=== PATIENT | female | born 1950 | race Caucasian/White ===

== ENCOUNTER 2018-08-02 20:35 | Emergency (ER) | payer MEDICARE, MEDICAID, SELFPAY ==
[2018-07-30 13:38] VITALS: BMI 33.3
[2018-08-02 20:36] VITALS: BP 190/70; PULSE 74; RESP 16; TEMP 36.8; O2SAT 99; BMI 33.3
[2018-08-02 20:53] VITALS: RESP 16; TEMP 36.9; O2SAT 99
[2018-08-02 21:05] LABS: Bedside Glucose > 500 mg/dL (70-110)
[2018-08-02] MEDS: Insulin Lispro 100 UNIT/ML INSULN.PEN 20 UNIT SC (22:00)
[2018-08-02 22:45] VITALS: BP 168/61; PULSE 86; RESP 18; O2SAT 97
[2018-08-02 23:12] LABS: ALB/GLOB Ratio 0.9 RATIO (0.9-2.4); AST(SGOT) 16 U/L (15-37); Alanine Aminotransfer ALT/SGPT 23 U/L (13-56); Albumin, Serum 3.3 g/dL (3.2-5.0); Alkaline Phosphatase 105 U/L (45-117); Anion Gap 10 (5-15); BUN 72 mg/dL (7-18); BUN/Creat Ratio 14.4 RATIO (10-20); Calcium,Total 8.7 mg/dL (8.5-10.1); Chloride 97 mmol/L (98-107); EST Glomerular Filtration Rate 9 mL/min (>60); Est Glom Filt Rate - Afr Amer 11 mL/min (>60); Estimated Creatinine Clearance 9.56 ml/min; Globulin 3.7 g/dL (2.2-4.2); Glucose 483 mg/dL (74-106); Potassium 3.6 mmol/L (3.5-5.1); Sodium Level 133 mmol/L (136-145)
[2018-08-02 23:36] LABS: Bedside Glucose 357 mg/dL (70-110)
--- NOTE | 2018-08-02 23:38 | ED.VISSUMM ---
- ER Visit Summary Date of Service: 08/02/18 Chief Complaint: Abnormal labs History of Present Illness: The patient is a 68 F who presents for abnormal labs. The patient says she was referred to the emergency department by Dr. Brooks because of irregular labs. Patient denies any symptoms or complaints. She has a history of chronic kidney disease and diabetes. She says she is scheduled for a fistula placement in 5 days. As of now, she has not started dialysis. She has no other access for dialysis. Patient denies any complaints whatsoever. Thorough review of systems was negative. Physical Examination: Afebrile and vital signs unremarkable except for a blood pressure of 190/70. Patient is alert and oriented. No acute distress. Head and neck atraumatic. HEENT exam grossly unremarkable. Heart regular rate and rhythm. Lungs clear. Abdomen soft and nontender. Skin appears normal. Test Results: Sodium 133, chloride 97, glucose 43, BUN 72, creatinine 5.0. Acetone pending. Emergency Department Course and Treatment: Patient's outpatient labs were reviewed. She had a hemoglobin of 10.7, glucose over 800, and creatinine of 5.1. IV access obtained. Patient received a bolus of fluids. Bedside glucose was over 500. She was treated with lispro 20 units, and labs were repeated. Plan was to admit the patient. Repeat glucose was 357. Patient's creatinine is now 5.0. BUN 72. Acetone pending. Patient's creatinine is rising. It has been around 3 since March 2018. Patient does not currently have access for dialysis. She is planning to get her fistula next week, but that will not be functional for at least a few months. I advised admission for inpatient care, but the patient does not want to stay. She has an appointment tomorrow and will not stay. I advised her that we can improve her glucose, but I cannot help with her worsening renal failure outside the hospital. She is at risk for complications of renal failure like hyperkalemia. Patient voiced understanding and agreement. She is alert and oriented and free from outside influence. Patient signed out AGAINST MEDICAL ADVICE. All questions were answered. She may return at any time if she has a change of heart. Treatment Plan: As above Disposition: AMA Impression: 1. Hyperglycemia 2. End-stage renal disease This note was generated with [employer] software. It may contain incorrect words, spelling, and punctuation that were not noted in review of the chart prior to signing ED Disposition - Plan for ED Patient: Referrals: Hortencia Zacarias, SHAN-C [Primary Care Provider] -
--- NOTE | 2018-08-02 23:45 | ED.DEP ---
ED Disposition - Plan for ED Patient: Instructions: ED Renal Failure Chronic, ED Hyperglycemia Diabetic Referrals: Hortencia Zacarias NP-C [Primary Care Provider] - Monty Brooks MD [STAFF PHYSICIAN] -
[2018-08-02 23:47] VITALS: BP 148/63; PULSE 87; RESP 16; O2SAT 98
== END 2018-08-02 23:52 | disposition home or self-care (01) ==
PROVIDERS: Emergency Provider Emergency Medicine; Family Provider Nurse Practitioner Family; PCP Nurse Practitioner Family
DX: E11.65 Type 2 diabetes mellitus with hyperglycemia (principal); I12.0 Hypertensive chronic kidney disease with stage 5 chronic kidney disease or end stage renal disease; E11.22 Type 2 diabetes mellitus with diabetic chronic kidney disease; N18.6 End stage renal disease; D63.1 Anemia in chronic kidney disease; Z53.21 Procedure and treatment not carried out due to patient leaving prior to being seen by health care provider; K21.9 Gastro-esophageal reflux disease without esophagitis; Z79.4 Long term (current) use of insulin; Z79.899 Other long term (current) drug therapy; Z72.0 Tobacco use
CPT/HCPCS: 80053; 82009; 82962; 96360; 96361; 99283; J7040; A4216

== ENCOUNTER 2018-08-06 18:36 | Observation (INO) | payer MEDICARE, MEDICAID, SELFPAY ==
[2018-07-30 13:38] VITALS: BMI 33.3
--- NOTE | 2018-08-02 17:04 | EKG12_ITS ---
Test Reason : Blood Pressure : / mmHG Vent. Rate : 068 BPM Atrial Rate : 068 BPM P-R Int : 168 ms QRS Dur : 096 ms QT Int : 446 ms P-R-T Axes : 054 045 -09 degrees QTc Int : 474 ms Normal sinus rhythm Possible Left atrial enlargement Nonspecific ST and T wave abnormality Prolonged QT Abnormal ECG Confirmed by EPHRAIM FRANZ, CANDICE ([id number]), photography editor LAZARO TREVIÑO ([id number]) on 08/06/2018 9:25:02 AM Referred By: Monty Brooks Confirmed By:CANDICE YE MD
[2018-08-02 17:48] LABS: Hematocrit 30.7 % (37-47); Hemoglobin 10.7 g/dl (12.0-15.0); Mean Corp Hgb Conc 34.9 g/gl (32-36); Mean Corpuscular Hgb 28.9 pg (27.0-32.0); Mean Platelet Vol. 11.4 fl (6.2-12.0); Platelet Count 177 K/mm3 (150-450); RBC Distribution Width CV 13.7 % (11.6-14.6); RBC Distribution Width SD 40.2 fl (35.1-43.9); Scan Indicated on CBC? Y/N NO; White Blood Count 5.4 K/mm3 (4.4-11.0)
[2018-08-02 18:03] LABS: Anion Gap 10 (5-15); BUN 77 mg/dL (7-18); BUN/Creat Ratio 15.1 RATIO (10-20); Calcium,Total 8.7 mg/dL (8.5-10.1); Chloride 95 mmol/L (98-107); Creatinine, Serum 5.11 mg/dL (0.55-1.02); EST Glomerular Filtration Rate 9 mL/min (>60); Est Glom Filt Rate - Afr Amer 11 mL/min (>60); Glucose 827 mg/dL (74-106); Potassium 3.9 mmol/L (3.5-5.1); Sodium Level 128 mmol/L (136-145)
[2018-08-06 18:36] VITALS: BP 146/76; PULSE 72; RESP 16; TEMP 36.3; O2SAT 98; BMI 33.3
[2018-08-06 19:41] LABS: Absolute Lymphocyte Count 2.26 X10^3/ul (0.83-4.51); Basophil# 0.03 X10^3/uL; Basophil% 0.4 % (0-1); Eosinophils% 2.7 % (0-5); Hematocrit 32.7 % (37-47); Hemoglobin 11.3 g/dl (12.0-15.0); Lymphocyte # 2.26 X10^3/ul (4.0); Lymphocyte % 30.7 % (19-41); Mean Corp Hgb Conc 34.6 g/gl (32-36); Mean Corpuscular Hgb 28.5 pg (27.0-32.0); Mean Corpuscular Volume 82.6 fL (81-99); Mean Platelet Vol. 10.5 fl (6.2-12.0); Monocyte# 0.87 X10^3/uL; Monocyte% 11.8 % (0-10); Neutrophil # 3.98 X10^3/uL (2.7-7.7); Neutrophil % 54.3 % (47-70); Platelet Count 227 K/mm3 (150-450); RBC Distribution Width CV 13.5 % (11.6-14.6); RBC Distribution Width SD 39.7 fl (35.1-43.9); Red Blood Count 3.96 M/mm3 (4.2-5.4); White Blood Count 7.4 K/mm3 (4.4-11.0)
[2018-08-06 19:45] LABS: POSITIVE COUNT NO; POSITIVE DIFFERENTIAL NO; POSITIVE MORPHOLOGY NO
[2018-08-06 19:56] LABS: BUN 75 mg/dL (7-18); Calcium,Total 9.5 mg/dL (8.5-10.1); Chloride 103 mmol/L (98-107); Creatinine, Serum 5.01 mg/dL (0.55-1.02); EST Glomerular Filtration Rate 9 mL/min (>60); Est Glom Filt Rate - Afr Amer 11 mL/min (>60); Estimated Creatinine Clearance 9.54 ml/min; Glucose 68 mg/dL (74-106); Potassium 3.3 mmol/L (3.5-5.1); Sodium Level 139 mmol/L (136-145)
[2018-08-06 19:57] LABS: Anion Gap 8 (5-15)
--- NOTE | 2018-08-06 20:06 | ED.RN ---
DR MERINO PAGED FOR DR JANSEN
--- NOTE | 2018-08-06 20:08 | ED.VISSUMM ---
- ER Visit Summary Date of Service: 08/06/18 Chief Complaint: [Concern for elevated blood sugar] History of Present Illness: The patient is a 68 F [presents to the emergency department with concern for elevated blood sugar. Patient was seen for pre-surgical testing on the fourth of this month and was noted to have a blood sugar of over 800. Today her surgeon called her and told her she needed to come to the emergency department to make sure her sugars are stabilized before she is to have her surgery for a fistula placement tomorrow by Dr. Monty Brooks. Patient states that she feels well and her blood sugars at home is been running in the 100s to the 200s. Patient normally gives herself sliding scale Humalog 3 times a day and uses Lantus at night. Last time she gave herself any insulin was approximately noon after eating lunch. Patient is not eaten since lunch. Patient has otherwise no complaints. No recent illness.] Physical Examination: [HEENT-PERRLA, EOMI. Cranial nerves II through XII grossly intact. TMs clear. Mucous membranes moist. No adenopathy. Cardiovascular-regular rate and rhythm without murmur or ectopy Lungs-clear to auscultation, chest wall stable without crepitus or subcu emphysema Abdomen-normoactive bowel sounds, soft, nontender, no rebound or rigidity, no peritoneal signs. Extremities-intact ?4, normal range of motion, normal pulses, atraumatic] Test Results: [CBC with differential obtained showed a white count of 7.4, hemoglobin 11, hematocrit 33, platelets 227. Chemistries unremarkable other than slightly depressed potassium 3.3. Blood glucose was 68.] Emergency Department Course and Treatment: [Patient was given 40 mEq of potassium chloride p.o. I will discuss case with physician on-call for Dr. Monty Brooks to make him aware findings but I do not feel any further treatments indicated at this time. Patient was given instructions on her medications tonight and was told to be n.p.o. after midnight.] Treatment Plan: [Follow-up tomorrow for your surgery. It is possible the abnormally elevated blood sugar was lab error.] Disposition: [Discharged to home in stable condition] Impression: [Concern for hyperglycemia] This note was generated with [employer] software. It may contain incorrect words, spelling, and punctuation that were not noted in review of the chart prior to signing ED Disposition - Plan for ED Patient: Referrals: Hortencia Zacarias, SHAN-C [Primary Care Provider] -
--- NOTE | 2018-08-06 20:11 | ED.DCSUM_ITS ---
- ER Visit Summary Date of Service: 08/06/18 Chief Complaint: [Concern for elevated blood sugar] History of Present Illness: The patient is a 68 F [presents to the emergency department with concern for elevated blood sugar. Patient was seen for pre- surgical testing on the fourth of this month and was noted to have a blood sugar of over 800. Today her surgeon called her and told her she needed to come to the emergency department to make sure her sugars are stabilized before she is to have her surgery for a fistula placement tomorrow by Dr. Monty Brooks. Patient states that she feels well and her blood sugars at home is been running in the 100s to the 200s. Patient normally gives herself sliding scale Humalog 3 times a day and uses Lantus at night. Last time she gave herself any insulin was approximately noon after eating lunch. Patient is not eaten since lunch. Patient has otherwise no complaints. No recent illness.] Physical Examination: [HEENT-PERRLA, EOMI. Cranial nerves II through XII grossly intact. TMs clear. Mucous membranes moist. No adenopathy. Cardiovascular-regular rate and rhythm without murmur or ectopy Lungs-clear to auscultation, chest wall stable without crepitus or subcu emphysema Abdomen-normoactive bowel sounds, soft, nontender, no rebound or rigidity, no peritoneal signs. Extremities-intact ?4, normal range of motion, normal pulses, atraumatic] Test Results: [CBC with differential obtained showed a white count of 7.4, hemoglobin 11, hematocrit 33, platelets 227. Chemistries unremarkable other than slightly depressed potassium 3.3. Blood glucose was 68.] Emergency Department Course and Treatment: [Patient was given 40 mEq of potassium chloride p.o. I will discuss case with physician on-call for Dr. Monty Brooks to make him aware findings but I do not feel any further treatments indicated at this time. Patient was given instructions on her medications tonight and was told to be n.p.o. after midnight.] Treatment Plan: [Follow-up tomorrow for your surgery. It is possible the abnormally elevated blood sugar was lab error.] Disposition: [Discharged to home in stable condition] Impression: [Concern for hyperglycemia] This note was generated with [employer] software. It may contain incorrect words, spelling, and punctuation that were not noted in review of the chart prior to signing ED Disposition - Plan for ED Patient: Referrals: Hortencia Zacarias, SHAN-C [Primary Care Provider] -
--- NOTE | 2018-08-06 20:13 | ED.DEP ---
ED Disposition - Plan for ED Patient: Instructions: ED Hyperglycemia Diabetic Referrals: Hortencia Zacarias NP-C [Primary Care Provider] - Additional Instructions: keep your appointement for surgery tomorrow
[2018-08-06 20:20] VITALS: RESP 18
--- NOTE | 2018-08-06 20:23 | ED.VISSUMM ---
- ER Visit Summary Date of Service: 08/06/18 Chief Complaint: [Addendum to initial dictation] History of Present Illness: The patient is a 68 F [] Physical Examination: [] Test Results: [] Emergency Department Course and Treatment: [] Treatment Plan: [I discussed case with who discussed case with Dr. Monty Brooks and recommended admission for the patient as she is been quite labile with her blood sugars and he would prefer to have her admitted and have her blood sugars managed before surgery tomorrow morning. This was established with hospitalist earlier in the day however patient took a long time to present to the emergency department.] Disposition: [Admit] Impression: [Hyperglycemia-uncontrolled by history Presurgery admission Hypokalemia] This note was generated with [employer] dictation software. It may contain incorrect words, spelling, and punctuation that were not noted in review of the chart prior to signing ED Disposition - Plan for ED Patient: Instructions: ED Hyperglycemia Diabetic Referrals: Hortencia Zacarias NP-C [Primary Care Provider] - Additional Instructions: keep your appointement for surgery tomorrow
[2018-08-06 21:23] VITALS: BP 176/65; PULSE 68; RESP 18; TEMP 36.6; O2SAT 98
--- NOTE | 2018-08-06 21:24 | HP.PCM_ITS ---
Problem List (1) Chronic renal failure, stage 4 (severe) Status: Chronic History of Present Illness Date of Admission: 08/06/18 Chief Complaint: kidney failure and poor glycemic control The patient is a 68 year old female patient with fragile diabetes presents to the hospital for admission. Surgery is planned in the am to place an arterial- venous fistula in her left upper extremity. She is known to have poor glycemic control and admission was requested to assure adequate diabetes management prior to this procedure. She has no complaints at this time and is agreeable to this management plan. Past Medical History Past Medical History (Chronic Problems): Chronic Problems (Last Updated 07/30/18 @ 13:36 by Ange Bustillos) Chronic renal failure, stage 4 (severe) (Chronic) Medical History: Medical History (Last Updated 07/30/18 @ 13:36 by Ange Bustillos) Chronic renal failure, stage 4 (severe) (Chronic) N18.4 Anemia D64.9 CHF (congestive heart failure) I50.9 Depression F32.9 Diabetes E11.9 Diabetic neuropathy E11.40 GERD (gastroesophageal reflux disease) K21.9 Obesity E66.9 Chronic kidney disease N18.9 Hypertension I10 Allergies No Known Allergies Allergy (Verified 08/06/18 18:38) Home Medications: Ambulatory Orders Medication Instructions Recorded atorvastatin 20 mg tablet 20 mg PO DAILY 07/30/18 calcitriol 0.25 mcg capsule 0.25 mcg PO DAILY cap 07/30/18 docusate sodium 50 mg capsule 50 mg PO TID cap 07/30/18 ezetimibe 10 mg tablet 10 mg PO DAILY 07/30/18 ferrous sulfate 325 mg (65 mg 325 mg PO BID tab 07/30/18 iron) tablet furosemide 80 mg tablet 80 mg PO DAILY 07/30/18 hydralazine 100 mg tablet 100 mg PO TID tab 07/30/18 insulin glargine (U- 100) 100 25 unit SC QHS ml 07/30/18 unit/mL subcutaneous solution insulin lispro (U- 100) 100 See Protocol SC TIDCM 07/30/18 unit/mL subcutaneous solution metolazone 5 mg tablet 5 mg PO TID tab 07/30/18 metoprolol succinate ER 100 mg 200 mg PO DAILY ea 07/30/18 capsule sprinkle, ext. release 24 hr ranitidine 150 mg tablet 150 mg PO DAILY 07/30/18 Ondansetron HCl 4 mg PO Q4H PRN PRN 08/02/18 Cholecalciferol (VIT D3) [Vitamin 1,000 unit PO DAILY 08/06/18 D] Surgical History: Surgical History (Last Updated 07/30/18 @ 13:36 by Ange Bustillos) History of Z98.891 History of appendectomy Z90.49 History of laparoscopic cholecystectomy Z90.49 history colon repair Smoking Status: Never smoker - *Family History Maternal Family History: Family History (Last Updated 07/30/18 @ 13:38 by Ange Bustillos) Father Diabetes Heart disease Mother Heart disease Sister Diabetes Brother Diabetes History Items: No pertinent history Review of Systems Constitutional: Denies: Chills, Fever, Weight Change HEENT: Denies: Head Aches, Sinus Congestion, Sinus Drainage Cardiovascular: Denies: Chest Pain, Palpitations Respiratory: Denies: Cough, Shortness of breath at rest, Sputum production Gastrointestinal: Denies: Abdominal Pain, Nausea, Vomiting Genitourinary: Denies: Dysuria Musculoskeletal: Denies: Joint Pain, Joint Tenderness Skin: Denies: Rash, Wounds Neurological: Denies: Numbness, Tingling, Focal weakness Psychiatric: Denies: Anxiety, Depression, Homicidal Ideations, Suicidal Ideations Hematologic/ Lymphatic: Denies: Easy Bruising, Easy Bleeding VTE Information - Inpt Only VTE Present on Admission: No VTE Mechan Device Prophylaxis: SCD's VTE Pharm Prophylaxis ordered?: No Reason prophylaxis not ordered:: Medical Contraindication - Physical Exam General: Alert, Oriented x3, Cooperative HEENT: Atraumatic, Normocephalic Neck: Supple Lungs: Clear to auscultation, Normal air movement Cardiovascular: Regular rate, Normal S1, Normal S2, No murmurs Abdomen: Bowel Sounds Present Extremities: No edema Skin: No rashes Musculoskeletal: No Tenderness to Palpation of Joints or Extremities Neurological: Neuro grossly intact Psych/Mental Status: Normal Affect, Appropriate Vital Signs Temp Pulse Resp BP Pulse Ox 97.4 F L 72 18 146/76 H 98 08/06/18 18:36 08/06/18 18:36 08/06/18 20:20 08/06/18 18:36 08/06/18 18:36 Oxygen Delivery Method Room Air Weight: 194 lb 3.636 oz Body Mass Index (BMI) 33.3 Finger Stick Blood Glucose 357 Laboratory Tests Past 24 Hrs 08/06/18 08/06/18 19:28 19:28 WBC 7.4 RBC 3.96 L Hgb 11.3 L Hct 32.7 L MCV 82.6 MCH 28.5 MCHC 34.6 RDW 13.5 RDW Differential 39.7 Plt Count 227 MPV 10.5 Immature Gran % (Auto) 0.100 Neut % (Auto) 54.3 Lymph % (Auto) 30.7 [place] % (Auto) 11.8 H Eos % (Auto) 2.7 Baso % (Auto) 0.4 Absolute Neuts (auto) 4.0 Absolute Lymphs (auto) 2.26 Total Counted Not Reportable Sodium 139 Potassium 3.3 L Chloride 103 Carbon Dioxide 28.0 Anion Gap 8 BUN 75 H Creatinine 5.01 H Estim Creat Clear Calc 9.54 Est GFR (MDRD) Af Amer 11 L Est GFR (MDRD) Non-Af 9 L BUN/Creatinine Ratio 15.0 Glucose 68 L Calcium 9.5 Assessment/Plan Chronic Problems (Last Updated 07/30/18 @ 13:36 by Ange Bustillos) Chronic renal failure, stage 4 (severe) (Chronic) Plan 1. Renal Failure-- admit to medical surgical floor, consult to Dr. Brooks for surgical management and fistula. IV normal saline at 75cc/hour, CBC, BMP in am. NPO at midnight 2. Diabetes-- give 12units Lantus and medium dose SSI Continue routine home medications for chronic medical conditions. SCDs for DVT prophylaxis Code Visit Inpatient E&M: 60133 Init Hosp L3
[2018-08-06 21:26] VITALS: BMI 33.0
[2018-08-06 21:35] VITALS: BMI 33.1
[2018-08-06 22:10] LABS: Bedside Glucose 156 mg/dL (70-110)
[2018-08-06 22:29] VITALS: PULSE 68
[2018-08-06] MEDS: hydrALAZINE 50 MG Tablet 100 MG PO (22:29)
[2018-08-06] MEDS: metOLazone 5 MG Tablet PO (22:29)
[2018-08-06] MEDS: 0.9% NaCl Peripheral Flush Adult/Peds IV (22:30)
[2018-08-06] MEDS: Docusate Sodium 100 MG/10 ML UDC 50 MG PO (22:30)
[2018-08-06] MEDS: 0.9% Normal Saline 1,000 ML 75 ML IV (22:30)
[2018-08-06] MEDS: Insulin Lispro 100 UNIT/ML INSULN.PEN SQ (23:09)
[2018-08-06 23:21] LABS: Hemoglobin A1c 9.5 % (4.2-6.3)
[2018-08-07] VITALS (20 sets, daily range): BP systolic 131–182; BP diastolic 49–97; PULSE 60–77; RESP 16–18; TEMP 36.3–37; O2SAT 66–100; BMI 33.0; BMI 33.1
[2018-08-07 05:37] LABS: Absolute Lymphocyte Count 2.02 X10^3/ul (0.83-4.51); Absolute Neutrophil Count 2.2 X10^3/uL (2.0-7.7); Basophil# 0.03 X10^3/uL; Basophil% 0.6 % (0-1); Eosinophil# 0.22 X10^3/uL; Eosinophils% 4.3 % (0-5); Hematocrit 28.4 % (37-47); Hemoglobin 9.6 g/dl (12.0-15.0); Lymphocyte # 2.02 X10^3/ul (4.0); Lymphocyte % 39.8 % (19-41); Mean Corp Hgb Conc 33.8 g/gl (32-36); Mean Corpuscular Hgb 28.5 pg (27.0-32.0); Mean Corpuscular Volume 84.3 fL (81-99); Mean Platelet Vol. 11.1 fl (6.2-12.0); Monocyte# 0.57 X10^3/uL; Monocyte% 11.2 % (0-10); Neutrophil # 2.22 X10^3/uL (2.7-7.7); Neutrophil % 43.9 % (47-70); Platelet Count 172 K/mm3 (150-450); RBC Distribution Width CV 13.6 % (11.6-14.6); RBC Distribution Width SD 40.5 fl (35.1-43.9); Red Blood Count 3.37 M/mm3 (4.2-5.4); White Blood Count 5.1 K/mm3 (4.4-11.0)
[2018-08-07 05:44] LABS: POSITIVE COUNT NO; POSITIVE DIFFERENTIAL NO; POSITIVE MORPHOLOGY NO
[2018-08-07 05:52] LABS: Anion Gap 9 (5-15); BUN 74 mg/dL (7-18); Chloride 104 mmol/L (98-107); Creatinine, Serum 4.92 mg/dL (0.55-1.02); EST Glomerular Filtration Rate 9 mL/min (>60); Est Glom Filt Rate - Afr Amer 11 mL/min (>60); Estimated Creatinine Clearance 9.71 ml/min; Glucose 386 mg/dL (74-106); Potassium 3.8 mmol/L (3.5-5.1); Sodium Level 138 mmol/L (136-145)
[2018-08-07] MEDS: hydrALAZINE 50 MG Tablet 100 MG PO ×2 (06:04→22:10)
[2018-08-07] MEDS: Insulin Lispro 100 UNIT/ML INSULN.PEN SQ ×2 (06:04→19:20)
[2018-08-07 06:15] LABS: Bedside Glucose 349 mg/dL (70-110)
--- NOTE | 2018-08-07 07:31 | PCM.PN.SRG ---
Subjective: Patient evaluated resting comfortably in bed. She notes overall feeling well. She notes her blood sugars typically run in the 200's at home. Patient's blood sugar was 386 via lab work and 349 at bedside at 0600. 5 units of Humalog was ordered to be given. Patient has been NPO since midnight last night. - Physical Exam General: Alert, Oriented x3, Cooperative Lungs: Clear to auscultation, Normal air movement Cardiovascular: Regular rate, No murmurs Vital Signs Temp Pulse Resp BP Pulse Ox 98.1 F 66 16 155/68 H 99 08/07/18 06:02 08/07/18 06:04 08/07/18 06:02 08/07/18 06:02 08/07/18 06:02 Oxygen Delivery Method Room Air Weight: 192 lb 14.472 oz Body Mass Index (BMI) 33.0 Finger Stick Blood Glucose 357 Intake and Output for Last 24 Hours 08/05/18 08/06/18 08/07/18 23:59 23:59 23:59 Intake Total 973 / 973 Output Total 300 / 300 600 / 600 Balance -300 / -300 373 / 373 Laboratory Tests Past 24 Hrs 08/06/18 08/06/18 08/06/18 19:28 19:28 19:28 WBC 7.4 RBC 3.96 L Hgb 11.3 L Hct 32.7 L MCV 82.6 MCH 28.5 MCHC 34.6 RDW 13.5 RDW Differential 39.7 Plt Count 227 MPV 10.5 Immature Gran % (Auto) 0.100 Neut % (Auto) 54.3 Lymph % (Auto) 30.7 [place] % (Auto) 11.8 H Eos % (Auto) 2.7 Baso % (Auto) 0.4 Absolute Neuts (auto) 4.0 Absolute Lymphs (auto) 2.26 Total Counted Not Reportable Sodium 139 Potassium 3.3 L Chloride 103 Carbon Dioxide 28.0 Anion Gap 8 BUN 75 H Creatinine 5.01 H Estim Creat Clear Calc 9.54 Est GFR (MDRD) Af Amer 11 L Est GFR (MDRD) Non-Af 9 L BUN/Creatinine Ratio 15.0 Glucose 68 L Hemoglobin A1c 9.5 H Calcium 9.5 08/07/18 08/07/18 05:08 05:08 WBC 5.1 RBC 3.37 L Hgb 9.6 L Hct 28.4 L MCV 84.3 MCH 28.5 MCHC 33.8 RDW 13.6 RDW Differential 40.5 Plt Count 172 MPV 11.1 Immature Gran % (Auto) 0.200 Neut % (Auto) 43.9 L Lymph % (Auto) 39.8 [place] % (Auto) 11.2 H Eos % (Auto) 4.3 Baso % (Auto) 0.6 Absolute Neuts (auto) 2.2 Absolute Lymphs (auto) 2.02 Total Counted Not Reportable Sodium 138 Potassium 3.8 Chloride 104 Carbon Dioxide 25.0 Anion Gap 9 BUN 74 H Creatinine 4.92 H Estim Creat Clear Calc 9.71 Est GFR (MDRD) Af Amer 11 L Est GFR (MDRD) Non-Af 9 L BUN/Creatinine Ratio 15.0 Glucose 386 H Hemoglobin A1c Calcium 9.0 POC Glucose 08/07/18 08/06/18 05:59 22:01 POC Glucose 349 H 156 H Medical Necessity - Tobacco Use Smoking Status: Former smoker Tobacco Use: Cigarettes Assessment/Plan I am following this patient in conjunction with Dr. Brooks. Impression: Chronic renal failure. Not currently on dialysis. Uncontrolled blood glucose. Optimize blood glucose for surgery scheduled today at 1100. Last blood glucose read was 349 at bedside Plan is for patient to continue on to surgery today Code Visit Inpatient E&M: 03918 Subs Hosp L1 - No charge
[2018-08-07 08:31] LABS: Bedside Glucose 155 mg/dL (70-110)
--- NOTE | 2018-08-07 09:20 | PCM.PN.HOSP ---
Subjective: Patient was admitted yesterday through the ED for AV fistula placement in glycemic control. She is a known diabetic noncompliant with her medication and had previously been seen in the ED with severely elevated blood glucose. She refused admission then. She is poor glycemic control prior to AV fistula insertion. On admission yesterday, blood glucose was around 68. Patient seen and examined this morning. She has no complaints feels well. She claims adherence to her diabetes medications and follows her [facility] in [place] for management of her diabetes. She denies any palpitations or dizziness, chest pain, abdominal pain, diarrhea vomiting. Review of systems otherwise negative. Labs and vitals reviewed. Vitals/I&O's: Vital Signs Temp Pulse Resp BP Pulse Ox 98.2 F 63 18 151/63 H 98 08/07/18 09:17 08/07/18 09:17 08/07/18 09:17 08/07/18 09:17 08/07/18 09:17 Oxygen Delivery Method Room Air Weight: 192 lb 14.472 oz Body Mass Index (BMI) 33.0 Finger Stick Blood Glucose 357 Intake and Output for Last 24 Hours 08/05/18 08/06/18 08/07/18 23:59 23:59 23:59 Intake Total 973 / 973 Output Total 300 / 300 600 / 600 Balance -300 / -300 373 / 373 General: Alert, Oriented x3, Cooperative, No apparent distress HEENT: Atraumatic, PERRLA, EOMI, Normocephalic Oral: Moist Mucosa Neck: Supple, No JVD, Negative Carotid Bruits Lungs: Clear to auscultation, Normal air movement, No rhonchi, No wheeze, No rales Cardiovascular: Regular rate, Regular Rhythm, Normal S1, Normal S2, No murmurs Abdomen: Bowel Sounds Present, Soft, Non Tender, Non-Distended, No Hepato-splenomegaly Extremities: No clubbing, No cyanosis, No edema, Capillary Refill Less than 3 Seconds, No Calf Tenderness Skin: No rashes, No breakdown Musculoskeletal: No Tenderness to Palpation of Joints or Extremities Lymphatic: No Cervical, Supraclavicular, or Inguinal Adenopathy Neurological: Cranial nerves II-XII grossly intact, Neuro grossly intact, Motor Exam 5/5 strength throughout Psych/Mental Status: Normal Affect, Appropriate, Alert and oriented to time, place, person, mood and affect Laboratory Results 08/06/18 19:28: WBC 7.4, RBC 3.96 L, Hgb 11.3 L, Hct 32.7 L, MCV 82.6, MCH 28.5, MCHC 34.6, RDW 13.5, RDW Differential 39.7, Plt Count 227, MPV 10.5, Immature Gran % (Auto) 0.100, Neut % (Auto) 54.3, Lymph % (Auto) 30.7, [place] % (Auto) 11.8 H, Eos % (Auto) 2.7, Baso % (Auto) 0.4, Absolute Neuts (auto) 4.0, Absolute Lymphs (auto) 2.26, Total Counted Not Reportable 08/06/18 19:28: Sodium 139, Potassium 3.3 L, Chloride 103, Carbon Dioxide 28.0, Anion Gap 8, BUN 75 H, Creatinine 5.01 H, Estim Creat Clear Calc 9.54, Est GFR (MDRD) Af Amer 11 L, Est GFR (MDRD) Non-Af 9 L, BUN/Creatinine Ratio 15.0, Glucose 68 L, Calcium 9.5 08/06/18 19:28: Hemoglobin A1c 9.5 H 08/06/18 22:01: POC Glucose 156 H 08/07/18 05:08: WBC 5.1, RBC 3.37 L, Hgb 9.6 L, Hct 28.4 L, MCV 84.3, MCH 28.5, MCHC 33.8, RDW 13.6, RDW Differential 40.5, Plt Count 172, MPV 11.1, Immature Gran % (Auto) 0.200, Neut % (Auto) 43.9 L, Lymph % (Auto) 39.8, [place] % (Auto) 11.2 H, Eos % (Auto) 4.3, Baso % (Auto) 0.6, Absolute Neuts (auto) 2.2, Absolute Lymphs (auto) 2.02, Total Counted Not Reportable 08/07/18 05:08: Sodium 138, Potassium 3.8, Chloride 104, Carbon Dioxide 25.0, Anion Gap 9, BUN 74 H, Creatinine 4.92 H, Estim Creat Clear Calc 9.71, Est GFR (MDRD) Af Amer 11 L, Est GFR (MDRD) Non-Af 9 L, BUN/Creatinine Ratio 15.0, Glucose 386 H, Calcium 9.0 08/07/18 05:59: POC Glucose 349 H 08/07/18 08:28: POC Glucose 155 H Current Medications Atorvastatin Calcium (Lipitor) 20 mg PO DAILY@2200 [facility] Last Admin: 08/06/18 22:30 Dose: Not Given Calcitriol (Rocaltrol) 0.25 mcg PO DAILY [facility] Cholecalciferol (Vitamin D) 1,000 unit PO DAILY [facility] Dextrose (D50w Syringe) 0 gm IV X1 PRN; Protocol PRN Reason: Hypoglycemia Docusate Sodium (Colace Syrup) 50 mg PO TID [facility] Last Admin: 08/07/18 06:05 Dose: Not Given Ezetimibe (Zetia) 10 mg PO DAILY [facility] Famotidine (Pepcid) 20 mg PO DAILY [facility] Ferrous Sulfate (Ferrous Sulfate) 325 mg PO BID@1200,1700 [facility] Furosemide (Lasix) 80 mg PO DAILY [facility] Glucagon () 1 mg IM .X1 PRN PRN Reason: Hypoglycemia Hydralazine HCl (Apresoline) 100 mg PO TID [facility] Last Admin: 08/07/18 06:04 Dose: 100 mg Sodium Chloride () 1,000 mls @ 75 mls/hr IV .[id number] [facility] Last Admin: 08/06/18 22:30 Dose: 75 mls/hr Insulin Glargine (Lantus (Bkc)) 12 units SC QHS [facility] Last Admin: 08/06/18 23:09 Dose: 12 u Insulin Human Lispro (Humalog Kwikpen (Bkc)) 0 unit SQ Q6 [facility]; Protocol Last Admin: 08/07/18 06:04 Dose: 5 u Metolazone (Zaroxolyn) 5 mg PO TID [facility] Last Admin: 08/07/18 06:05 Dose: Not Given Metoprolol Succinate (Toprol Xl (Beta Eyal)) 200 mg PO DAILY [facility] Ondansetron HCl (Zofran Odt) 4 mg PO Q4H PRN PRN PRN Reason: NAUSEA Sodium Chloride () 5 - 15 ml IV UD PRN PRN Reason: SALINE FLUSH Last Admin: 08/06/18 22:30 Dose: 10 ml Medical Necessity - Tobacco Use Smoking Status: Former smoker Tobacco Use: Cigarettes Assessment/Plan 1. CKD stage 5 Cr today is 4.92, eGFR is 9 for AV fistula placement today Dr Brooks on board currently on NS at 75cc/hr on calcitriol 2. Diabetes mellitus poorly controlled. A1C is 9.5 was recently seen in ED with hyperglycemia; blood glucose on admission was 68 this time claims compliance with her medications home meds: insulin lantus 25IU qhs, ISS. currently NPO; on ISS. Accuchecks 16hr 3. Hyperlipidemia: on statin and ezetimibe 4. Hypertension: on hydralazine 100mg tid, metoprolol 200mg daily 5. Chronic heart failure EF unknown: on lasix 80mg daily and metolazone 5mg tid. 6. GERD: on ranitidine 7. Anemia: likely due to CKD. Hb is 9.6. On iron supplements DVT prophylaxis: SCD Code Visit OBSV E&M: 43962 Subsequent observation care L3
--- NOTE | 2018-08-07 09:27 | NURSING ---
0830 - LATE ENTRY - LAZARO WARRINGTON NOTIFIED OF BLOOD SUGAR 155.
--- NOTE | 2018-08-07 09:28 | NURSING ---
PT TO RO VIA BED
--- NOTE | 2018-08-07 09:33 | NURSING ---
REPORT CALLED TO RICHARD GUEVARA IN [place]
--- NOTE | 2018-08-07 09:36 | PN_ITS ---
Subjective: Patient was admitted yesterday through the ED for AV fistula placement in glycemic control. She is a known diabetic noncompliant with her medication and had previously been seen in the ED with severely elevated blood glucose. She refused admission then. She is poor glycemic control prior to AV fistula insertion. On admission yesterday, blood glucose was around 68. Patient seen and examined this morning. She has no complaints feels well. She claims adherence to her diabetes medications and follows her CLAIM MANAGER in [place] for management of her diabetes. She denies any palpitations or dizziness, chest pain, abdominal pain, diarrhea vomiting. Review of systems otherwise negative. Labs and vitals reviewed. Vitals/I&O's: Vital Signs Temp Pulse Resp BP Pulse Ox 98.2 F 63 18 151/63 H 98 08/07/18 09:17 08/07/18 09:17 08/07/18 09:17 08/07/18 09:17 08/07/18 09:17 Oxygen Delivery Method Room Air Weight: 192 lb 14.472 oz Body Mass Index (BMI) 33.0 Finger Stick Blood Glucose 357 Intake and Output for Last 24 Hours 08/05/18 08/06/18 08/07/18 23:59 23:59 23:59 Intake Total 973 / 973 Output Total 300 / 300 600 / 600 Balance -300 / -300 373 / 373 General: Alert, Oriented x3, Cooperative, No apparent distress HEENT: Atraumatic, PERRLA, EOMI, Normocephalic Oral: Moist Mucosa Neck: Supple, No JVD, Negative Carotid Bruits Lungs: Clear to auscultation, Normal air movement, No rhonchi, No wheeze, No rales Cardiovascular: Regular rate, Regular Rhythm, Normal S1, Normal S2, No murmurs Abdomen: Bowel Sounds Present, Soft, Non Tender, Non-Distended, No Hepato- splenomegaly Extremities: No clubbing, No cyanosis, No edema, Capillary Refill Less than 3 Seconds, No Calf Tenderness Skin: No rashes, No breakdown Musculoskeletal: No Tenderness to Palpation of Joints or Extremities Lymphatic: No Cervical, Supraclavicular, or Inguinal Adenopathy Neurological: Cranial nerves II-XII grossly intact, Neuro grossly intact, Motor Exam 5/5 strength throughout Psych/Mental Status: Normal Affect, Appropriate, Alert and oriented to time, place, person, mood and affect Laboratory Results 08/06/18 19:28: WBC 7.4, RBC 3.96 L, Hgb 11.3 L, Hct 32.7 L, MCV 82.6, MCH 28.5, MCHC 34.6, RDW 13.5, RDW Differential 39.7, Plt Count 227, MPV 10.5, Immature Gran % (Auto) 0.100, Neut % (Auto) 54.3, Lymph % (Auto) 30.7, Walker % (Auto) 11.8 H, Eos % (Auto) 2.7, Baso % (Auto) 0.4, Absolute Neuts (auto) 4.0, Absolute Lymphs (auto) 2.26, Total Counted Not Reportable 08/06/18 19:28: Sodium 139, Potassium 3.3 L, Chloride 103, Carbon Dioxide 28.0, Anion Gap 8, BUN 75 H, Creatinine 5.01 H, Estim Creat Clear Calc 9.54, Est GFR (MDRD) Af Amer 11 L, Est GFR (MDRD) Non-Af 9 L, BUN/Creatinine Ratio 15.0, Glucose 68 L, Calcium 9.5 08/06/18 19:28: Hemoglobin A1c 9.5 H 08/06/18 22:01: POC Glucose 156 H 08/07/18 05:08: WBC 5.1, RBC 3.37 L, Hgb 9.6 L, Hct 28.4 L, MCV 84.3, MCH 28.5, MCHC 33.8, RDW 13.6, RDW Differential 40.5, Plt Count 172, MPV 11.1, Immature G ran % (Auto) 0.200, Neut % (Auto) 43.9 L, Lymph % (Auto) 39.8, Walker % (Auto) 11.2 H, Eos % (Auto) 4.3, Baso % (Auto) 0.6, Absolute Neuts (auto) 2.2, Absolute Lymphs (auto) 2.02, Total Counted Not Reportable 08/07/18 05:08: Sodium 138, Potassium 3.8, Chloride 104, Carbon Dioxide 25.0, Anion Gap 9, BUN 74 H, Creatinine 4.92 H, Estim Creat Clear Calc 9.71, Est GFR (MDRD) Af Amer 11 L, Est GFR (MDRD) Non-Af 9 L, BUN/Creatinine Ratio 15.0, Glucose 386 H, Calcium 9.0 08/07/18 05:59: POC Glucose 349 H 08/07/18 08:28: POC Glucose 155 H Current Medications Atorvastatin Calcium (Lipitor) 20 mg PO DAILY@2200 [facility] Last Admin: 08/06/18 22:30 Dose: Not Given Calcitriol (Rocaltrol) 0.25 mcg PO DAILY [facility] Cholecalciferol (Vitamin D) 1,000 unit PO DAILY [facility] Dextrose (D50w Syringe) 0 gm IV X1 PRN; Protocol PRN Reason: Hypoglycemia Docusate Sodium (Colace Syrup) 50 mg PO TID [facility] Last Admin: 08/07/18 06:05 Dose: Not Given Ezetimibe (Zetia) 10 mg PO DAILY [facility] Famotidine (Pepcid) 20 mg PO DAILY [facility] Ferrous Sulfate (Ferrous Sulfate) 325 mg PO BID@1200,1700 [facility] Furosemide (Lasix) 80 mg PO DAILY [facility] Glucagon () 1 mg IM .X1 PRN PRN Reason: Hypoglycemia Hydralazine HCl (Apresoline) 100 mg PO TID [facility] Last Admin: 08/07/18 06:04 Dose: 100 mg Sodium Chloride () 1,000 mls @ 75 mls/hr IV .[id number] [facility] Last Admin: 08/06/18 22:30 Dose: 75 mls/hr Insulin Glargine (Lantus (Bkc)) 12 units SC QHS [facility] Last Admin: 08/06/18 23:09 Dose: 12 u Insulin Human Lispro (Humalog Kwikpen (Bkc)) 0 unit SQ Q6 [facility]; Protocol Last Admin: 08/07/18 06:04 Dose: 5 u Metolazone (Zaroxolyn) 5 mg PO TID [facility] Last Admin: 08/07/18 06:05 Dose: Not Given Metoprolol Succinate (Toprol Xl (Beta Eyal)) 200 mg PO DAILY [facility] Ondansetron HCl (Zofran Odt) 4 mg PO Q4H PRN PRN PRN Reason: NAUSEA Sodium Chloride () 5 - 15 ml IV UD PRN PRN Reason: SALINE FLUSH Last Admin: 08/06/18 22:30 Dose: 10 ml Medical Necessity - Tobacco Use Smoking Status: Former smoker Tobacco Use: Cigarettes Assessment/Plan 1. CKD stage 5 * Cr today is 4.92, eGFR is 9 * for AV fistula placement today * Dr Brooks on board * currently on NS at 75cc/hr * on calcitriol 2. Diabetes mellitus * poorly controlled. A1C is 9.5 * was recently seen in ED with hyperglycemia; blood glucose on admission was 68 this time * claims compliance with her medications * home meds: insulin lantus 25IU qhs, ISS. * currently NPO; on ISS. Accuchecks 16hr * 3. Hyperlipidemia: on statin and ezetimibe 4. Hypertension: on hydralazine 100mg tid, metoprolol 200mg daily 5. Chronic heart failure EF unknown: on lasix 80mg daily and metolazone 5mg tid. 6. GERD: on ranitidine 7. Anemia: likely due to CKD. Hb is 9.6. On iron supplements DVT prophylaxis: SCD Code Visit OBSV E&M: 27034 Subsequent observation care L3
--- NOTE | 2018-08-07 10:50 | PCM.DC.FIST ---
<Monty Brooks - Last Filed: 08/07/18 10:50> Discharge Diet: Renal Diet Discharge Activity: May Not Drive - for 2-3 days or while taking narcotic pain medications., May Shower, May Take a Tub Bath - in 5 days. May shower in (days): 3 Lifting Restrictions: 5 pounds Keep extremity elevated above heart level: - - Keep arm elevated above the heart level for 3 days. Additional Activity Instructions:: Exercise hand vigorously with a stress ball. Call your doctor if your incision/area has: Continuous Slow Oozing, Sudden Increased Bleeding - apply pressure and call your doctor., Increased Pain/ Swelling, Increased Redness, Foul Smelling Discharge Call your doctor if you observe: Fever of 101 or Higher Suture Line Care: Avoid Pulling/Pushing, Avoid Pinching/Bending Cleanse incision/area with: Keep Dressing Clean & Dry Additional Dressing/Incision Instructions:: Change or remove dressing in two days. May protect with a gauze bandaid. Instructions: ED Hyperglycemia Diabetic Allergies/Adverse Reactions: Allergies No Known Allergies Allergy (Verified 08/06/18 18:38) Medications to take at Discharge atorvastatin 20 mg tablet 20 mg PO DAILY 07/30/18 calcitriol 0.25 mcg capsule 0.25 mcg PO DAILY cap 07/30/18 docusate sodium 50 mg capsule 50 mg PO TID cap 07/30/18 ezetimibe 10 mg tablet 10 mg PO DAILY 07/30/18 ferrous sulfate 325 mg (65 mg iron) tablet 325 mg PO BID tab 07/30/18 furosemide 80 mg tablet 80 mg PO DAILY 07/30/18 hydralazine 100 mg tablet 100 mg PO TID tab 07/30/18 insulin glargine (U- 100) 100 unit/mL subcutaneous solution 25 unit SC QHS ml 07/30/18 insulin lispro (U- 100) 100 unit/mL subcutaneous solution See Protocol SC TIDCM 07/30/18 metolazone 5 mg tablet 5 mg PO TID tab 07/30/18 metoprolol succinate ER 100 mg capsule sprinkle, ext. release 24 hr 200 mg PO DAILY ea 07/30/18 ranitidine 150 mg tablet 150 mg PO DAILY 07/30/18 Ondansetron HCl 4 mg PO Q4H PRN PRN 08/02/18 Cholecalciferol (VIT D3) [Vitamin D3] 1,000 unit PO DAILY 08/06/18 Hydrocodone Bitart/Apap 5-325 [Cantril 5MG-325MG] 1 tablet PO Q6H PRN PRN 2 Days #6 tablet 08/07/18 The following prescriptions were given: Hydrocodone Bitart/Apap 5-325 [Cantril 5MG-325MG] 1 tablet PO Q6H PRN PRN 2 Days #6 tablet PRN Reason: Pain Primary Care Physician: Hortencia Zacarias NP-C [Primary Care Provider] - Test Results: Test results from this visit will be discussed in further detail at your follow-up appointment, if applicable. Please Follow Up With: Monty Brooks MD - [phone] When: Call to make an appointment for suture removal and follow up in 10 days <Praisa Escalona - Last Filed: 08/08/18 08:35> Test Results: Test results from this visit will be discussed in further detail at your follow-up appointment, if applicable.
[2018-08-07] MEDS: Bupivacaine Mpf 0.5% 30 ML VIAL (11:20)
[2018-08-07] MEDS: Heparin Injection (Vial) 5,000 UNIT/ML VIAL 5000 UNIT ×2 (11:40→18:00)
--- NOTE | 2018-08-07 12:41 | OP.PCM_ITS ---
Problem List (1) Chronic renal failure, stage 4 (severe) Status: Chronic Report of Operation Date of Procedure: 08/07/18 Pre-Operative Diagnosis: Stage IV chronic renal insufficiency Post-Operative Diagnosis: Same Surgery/Procedure Performed:: Transposition left upper arm cephalic vein to brachial artery arteriovenous hemodialysis fistula creation Description of Surgical Findings:: 68-year-old female taken the operating. She was placed on the table. She underwent monitored anesthesia care local anesthetic. The left upper extremity was sterilely prepped and draped. Throughout the procedure 31 cc of 1% lidocaine mixed 50-50 with 0.5% Marcaine and 15 cc of 0.5% lidocaine was used as local anesthetic. Ultrasound was used to map the course of the left upper arm cephalic vein. It was deeply placed. Local was instilled. A longitudinal incision was created in the left upper arm. Tedious sharp and blunt dissection was used to identify the cephalic vein side branches were secured with 3-0 Vicryl ligatures as well as hemoclips. The vein was dissected free all the way up to the shoulder. Then I measured length. Assessed the spot of the brachial artery in the distal volar left upper arm local was instilled longitudinal incision was created sharp blunt dissection was used to identify the brachial artery and a vessel loop was placed. Then a tunnel was made from the brachial artery site up to the shoulder. The cephalic vein was ligated at the antecubital space with 2 hemo-lock clips. It was then tunneled from medial to the transposition and incision. It irrigated and was in a good positional lie. The patient received 10,000 units of heparin. Peripheral vascular clamps were placed on the brachial artery. 11 blade was used to make an arteriotomy which was extended with Victor scissors. A end-to-side anastomosis was created with the spatulated vein using a 7-0 Prolene. Prior to completion there is good antegrade retrograde flow. The anastomosis was completed there was good positional lie of the vein. No undue tension. There was a good pulse and thrill. The hand was inspected. It was very pink and viable. There was good triphasic left radial artery flow. Hemostasis was nicely intact. The patient received 30 mg of protamine as reversal. Each wound was closed with a deep layer of interrupted 3-0 Vicryl and then a running septic or 4-0 Monocryl or running septic or 4-0 Vicryl. Steri- Strips Telfa soft roll Alejandro wrap applied. Sponge and instrument and needle counts were reported to the surgeon to be correct. Blood loss was minimal. She tolerated the procedure well was taken to the recovery area in satisfactory condition without apparent complication. Specimens none. Drains none. Blood loss minimal. Monty Brooks M.D., F.A.C.S. Type of Anesthesia:: Local MAC Anesthesiologist: Ady Mackey
--- NOTE | 2018-08-07 14:37 | DCINST_ITS ---
You will use the following diet at home:: Calorie/Carbohydrate Controlled (specify 1200, 1400, etc) - 1800 calories, Renal (restricted protein/sodium) Your food should be the consistency of: Regular Your liquids should be the consistency of: Regular/Thin Discharge Activity: May Not Drive - for 2-3 days or while taking narcotic pain medications., May Shower, May Take a Tub Bath - in 5 days. May shower in (days): 3 Keep extremity elevated above heart level: - - Keep arm elevated above the heart level for 3 days. Additional Activity Instructions:: Exercise hand vigorously with a stress ball. Call your doctor if your incision/area has: Continuous Slow Oozing, Sudden Increased Bleeding - apply pressure and call your doctor., Increased Pain/ Swelling, Increased Redness, Foul Smelling Discharge Call your doctor if you observe: Fever of 101 or Higher Suture Line Care: Avoid Pulling/Pushing, Avoid Pinching/Bending Cleanse incision/area with: Keep Dressing Clean & Dry Additional Dressing/Incision Instructions:: Change or remove dressing in two days. May protect with a gauze bandaid. Instructions: ED Hyperglycemia Diabetic Additional Instructions: follow up with your jacquard loom heddles tier within one week Allergies/Adverse Reactions: Allergies No Known Allergies Allergy (Verified 08/06/18 18:38) Medications to take at Discharge atorvastatin 20 mg tablet 20 mg PO DAILY 07/30/18 calcitriol 0.25 mcg capsule 0.25 mcg PO DAILY cap 07/30/18 docusate sodium 50 mg capsule 50 mg PO TID cap 07/30/18 ezetimibe 10 mg tablet 10 mg PO DAILY 07/30/18 ferrous sulfate 325 mg (65 mg iron) tablet 325 mg PO BID tab 07/30/18 furosemide 80 mg tablet 80 mg PO DAILY 07/30/18 hydralazine 100 mg tablet 100 mg PO TID tab 07/30/18 insulin glargine (U- 100) 100 unit/mL subcutaneous solution 25 unit SC QHS ml 07/30/18 insulin lispro (U- 100) 100 unit/mL subcutaneous solution See Protocol SC TIDCM 07/30/18 metolazone 5 mg tablet 5 mg PO TID tab 07/30/18 metoprolol succinate ER 100 mg capsule sprinkle, ext. release 24 hr 200 mg PO DAILY ea 07/30/18 ranitidine 150 mg tablet 150 mg PO DAILY 07/30/18 Ondansetron HCl 4 mg PO Q4H PRN PRN 08/02/18 Cholecalciferol (VIT D3) [Vitamin D3] 1,000 unit PO DAILY 08/06/18 Hydrocodone Bitart/Apap 5-325 [[place] 5MG-325MG] 1 tablet PO Q6H PRN PRN 2 Days #6 tablet 08/07/18 The following prescriptions were given: Hydrocodone Bitart/Apap 5-325 [[place] 5MG-325MG] 1 tablet PO Q6H PRN PRN 2 Days #6 tablet PRN Reason: Pain Primary Care Physician: Hortencia Zacarias NP-C [Primary Care Provider] - Please follow up with your Primary Care Physician in: one week Test Results: Test results from this visit will be discussed in further detail at your follow- up appointment, if applicable. Please Follow Up With: Monty Brooks MD - [phone] When: Call to make an appointment for suture removal and follow up in 10 days Proposed Discharge Date: 08/07/18
--- NOTE | 2018-08-07 14:37 | PCM.DC.SUM ---
Discharge Date and Diagnosis Date of Admission: 08/06/18 - Secondary Discharge Diagnosis Chronic Problems (Last Updated 07/30/18 @ 13:36 by Ange Bustillos) Chronic renal failure, stage 4 (severe) (Chronic) Hospital Course and Treatment Summary of Care Provided: The patient is a 68 year old F [] - Physical Exam Vital Signs Temp Pulse Resp BP Pulse Ox 98.3 F 70 18 157/85 H 99 08/07/18 14:19 08/07/18 14:19 08/07/18 14:19 08/07/18 14:19 08/07/18 14:19 Oxygen Delivery Method Room Air Weight: 192 lb 14.472 oz Body Mass Index (BMI) 33.0 Finger Stick Blood Glucose 357 Intake and Output for Last 24 Hours 08/05/18 08/06/18 08/07/18 23:59 23:59 23:59 Intake Total 1373 / 1373 Output Total 300 / 300 1200 / 1200 Balance -300 / -300 173 / 173 Laboratory Tests Past 24 Hrs 08/06/18 08/06/18 08/06/18 19:28 19:28 19:28 WBC 7.4 RBC 3.96 L Hgb 11.3 L Hct 32.7 L MCV 82.6 MCH 28.5 MCHC 34.6 RDW 13.5 RDW Differential 39.7 Plt Count 227 MPV 10.5 Immature Gran % (Auto) 0.100 Neut % (Auto) 54.3 Lymph % (Auto) 30.7 Wharton % (Auto) 11.8 H Eos % (Auto) 2.7 Baso % (Auto) 0.4 Absolute Neuts (auto) 4.0 Absolute Lymphs (auto) 2.26 Total Counted Not Reportable Sodium 139 Potassium 3.3 L Chloride 103 Carbon Dioxide 28.0 Anion Gap 8 BUN 75 H Creatinine 5.01 H Estim Creat Clear Calc 9.54 Est GFR (MDRD) Af Amer 11 L Est GFR (MDRD) Non-Af 9 L BUN/Creatinine Ratio 15.0 Glucose 68 L Hemoglobin A1c 9.5 H Calcium 9.5 08/07/18 08/07/18 05:08 05:08 WBC 5.1 RBC 3.37 L Hgb 9.6 L Hct 28.4 L MCV 84.3 MCH 28.5 MCHC 33.8 RDW 13.6 RDW Differential 40.5 Plt Count 172 MPV 11.1 Immature Gran % (Auto) 0.200 Neut % (Auto) 43.9 L Lymph % (Auto) 39.8 Wharton % (Auto) 11.2 H Eos % (Auto) 4.3 Baso % (Auto) 0.6 Absolute Neuts (auto) 2.2 Absolute Lymphs (auto) 2.02 Total Counted Not Reportable Sodium 138 Potassium 3.8 Chloride 104 Carbon Dioxide 25.0 Anion Gap 9 BUN 74 H Creatinine 4.92 H Estim Creat Clear Calc 9.71 Est GFR (MDRD) Af Amer 11 L Est GFR (MDRD) Non-Af 9 L BUN/Creatinine Ratio 15.0 Glucose 386 H Hemoglobin A1c Calcium 9.0 POC Glucose 08/07/18 08/07/18 08/06/18 08:28 05:59 22:01 POC Glucose 155 H 349 H 156 H Discharge Diet: Renal Diet Discharge Activity: May Not Drive - for 2-3 days or while taking narcotic pain medications., May Shower, May Take a Tub Bath - in 5 days. May shower in (days): 3 Keep extremity elevated above heart level: - - Keep arm elevated above the heart level for 3 days. Additional Activity Instructions:: Exercise hand vigorously with a stress ball. Call your doctor if your incision/area has: Continuous Slow Oozing, Sudden Increased Bleeding - apply pressure and call your doctor., Increased Pain/ Swelling, Increased Redness, Foul Smelling Discharge Call your doctor if you observe: Fever of 101 or Higher Suture Line Care: Avoid Pulling/Pushing, Avoid Pinching/Bending Cleanse incision/area with: Keep Dressing Clean & Dry Additional Dressing/Incision Instructions:: Change or remove dressing in two days. May protect with a gauze bandaid. Home Medications: Medications to take at Discharge atorvastatin 20 mg tablet 20 mg PO DAILY 07/30/18 calcitriol 0.25 mcg capsule 0.25 mcg PO DAILY cap 07/30/18 docusate sodium 50 mg capsule 50 mg PO TID cap 07/30/18 ezetimibe 10 mg tablet 10 mg PO DAILY 07/30/18 ferrous sulfate 325 mg (65 mg iron) tablet 325 mg PO BID tab 07/30/18 furosemide 80 mg tablet 80 mg PO DAILY 07/30/18 hydralazine 100 mg tablet 100 mg PO TID tab 07/30/18 insulin glargine (U- 100) 100 unit/mL subcutaneous solution 25 unit SC QHS ml 07/30/18 insulin lispro (U- 100) 100 unit/mL subcutaneous solution See Protocol SC TIDCM 07/30/18 metolazone 5 mg tablet 5 mg PO TID tab 07/30/18 metoprolol succinate ER 100 mg capsule sprinkle, ext. release 24 hr 200 mg PO DAILY ea 07/30/18 ranitidine 150 mg tablet 150 mg PO DAILY 07/30/18 Ondansetron HCl 4 mg PO Q4H PRN PRN 08/02/18 Cholecalciferol (VIT D3) [Vitamin D3] 1,000 unit PO DAILY 08/06/18 Hydrocodone Bitart/Apap 5-325 [[place] 5MG-325MG] 1 tablet PO Q6H PRN PRN 2 Days #6 tablet 08/07/18 Following Prescrptions Were Given to Patient: Hydrocodone Bitart/Apap 5-325 [[place] 5MG-325MG] 1 tablet PO Q6H PRN PRN 2 Days #6 tablet PRN Reason: Pain Primary Care Physician: Hortencia Zacarias NP-C [Primary Care Provider] - Please follow up with your Primary Care Physician in: one week Please Follow Up With: Monty Brooks MD - [phone] When: Call to make an appointment for suture removal and follow up in 10 days Patient Instructions: ED Hyperglycemia Diabetic Medical Necessity - Tobacco Use Smoking Status: Former smoker Tobacco Use: Cigarettes
--- NOTE | 2018-08-07 15:29 | PN.SURG_ITS ---
Subjective: Asked to see pt b/o unable to hear fistula on her return to floor - Physical Exam Extremities: - - no pulse, thrill or bruit Vital Signs Temp Pulse Resp BP Pulse Ox 98.3 F 70 18 157/85 H 99 08/07/18 14:19 08/07/18 14:19 08/07/18 14:19 08/07/18 14:19 08/07/18 14:19 Oxygen Delivery Method Room Air Weight: 192 lb 14.472 oz Body Mass Index (BMI) 33.0 Finger Stick Blood Glucose 357 Intake and Output for Last 24 Hours 08/05/18 08/06/18 08/07/18 23:59 23:59 23:59 Intake Total 1373 / 1373 Output Total 300 / 300 1200 / 1200 Balance -300 / -300 173 / 173 Laboratory Tests Past 24 Hrs 08/06/18 08/06/18 08/06/18 19:28 19:28 19:28 WBC 7.4 RBC 3.96 L Hgb 11.3 L Hct 32.7 L MCV 82.6 MCH 28.5 MCHC 34.6 RDW 13.5 RDW Differential 39.7 Plt Count 227 MPV 10.5 Immature Gran % (Auto) 0.100 Neut % (Auto) 54.3 Lymph % (Auto) 30.7 [place]ahan % (Auto) 11.8 H Eos % (Auto) 2.7 Baso % (Auto) 0.4 Absolute Neuts (auto) 4.0 Absolute Lymphs (auto) 2.26 Total Counted Not Reportable Sodium 139 Potassium 3.3 L Chloride 103 Carbon Dioxide 28.0 Anion Gap 8 BUN 75 H Creatinine 5.01 H Estim Creat Clear Calc 9.54 Est GFR (MDRD) Af Amer 11 L Est GFR (MDRD) Non-Af 9 L BUN/Creatinine Ratio 15.0 Glucose 68 L Hemoglobin A1c 9.5 H Calcium 9.5 08/07/18 08/07/18 05:08 05:08 WBC 5.1 RBC 3.37 L Hgb 9.6 L Hct 28.4 L MCV 84.3 MCH 28.5 MCHC 33.8 RDW 13.6 RDW Differential 40.5 Plt Count 172 MPV 11.1 Immature Gran % (Auto) 0.200 Neut % (Auto) 43.9 L Lymph % (Auto) 39.8 [place]ahan % (Auto) 11.2 H Eos % (Auto) 4.3 Baso % (Auto) 0.6 Absolute Neuts (auto) 2.2 Absolute Lymphs (auto) 2.02 Total Counted Not Reportable Sodium 138 Potassium 3.8 Chloride 104 Carbon Dioxide 25.0 Anion Gap 9 BUN 74 H Creatinine 4.92 H Estim Creat Clear Calc 9.71 Est GFR (MDRD) Af Amer 11 L Est GFR (MDRD) Non-Af 9 L BUN/Creatinine Ratio 15.0 Glucose 386 H Hemoglobin A1c Calcium 9.0 POC Glucose 08/07/18 08/07/18 08/06/18 08:28 05:59 22:01 POC Glucose 155 H 349 H 156 H Medical Necessity - Tobacco Use Smoking Status: Former smoker Tobacco Use: Cigarettes Assessment/Plan Urgent re exploration recommended for acutely occluded left upper arm fistula. Zara
--- NOTE | 2018-08-07 15:33 | NURSING ---
LATE ENTRY - 1430 PT RETURN FROM OR. SOTERO WRAP LUE REMOVED TO ASSESS THRILL/BRUIT. UNABLE TO PALPATE/AUSCULTATE THROUGH COTTON DRESSING. PT LUE WARM, +RADIAL PULSE, DENIES N/T. ASKED CHARGE NURSE, PETE TO ASSESS WITH ME ALSO. CHARGE ALSO UNABLE TO PALPATE/AUSCULTATE. CALL PLACED TO DR BENEDICT. JACOB FROM DR BENEDICT'S OFFICE RETURNED CALL & EXPLAINED SITUATION. EXPLAINED WANTED TO ASK MD IF OK TO REMOVE DRSG COMPLETELY TO ASSESS. LATE ENTRY - 1511 - RETURN CALL FROM JACOB STATING OK TO REMOVE DRSG COMPLETELY. THIS NURSE WENT IMMEDIATELY TO PT ROOM TO ASSESS & DR BENEDICT ALREADY THERE ASSESSING PT. STATES PT WILL NEED TO GO BACK TO OR TODAY. KEEP NPO.
[2018-08-07 15:36] LABS: Bedside Glucose 287 mg/dL (70-110)
[2018-08-07] MEDS: Cefazolin 1 GM/50 ML BAG IV (17:20)
--- NOTE | 2018-08-07 18:43 | PCM.OPRPT ---
Problem List (1) Chronic renal failure, stage 4 (severe) Status: Chronic Report of Operation Date of Procedure: 08/07/18 Pre-Operative Diagnosis: Acute malfunction transposed left upper extremity cephalic vein to brachial artery arteriovenous hemodialysis fistula Post-Operative Diagnosis: 180 degree twist proximal left shoulder hemodialysis fistula Surgery/Procedure Performed:: Revision left upper arm transposed cephalic vein to brachial artery arteriovenous hemodialysis fistula Description of Surgical Findings:: The patient after arrival to the floor had absence of posterior and bruit within her newly created left upper extremity transposed cephalic vein to brachial artery AV fistula. She was taken back to surgery. Underwent general anesthesia. Ancef 1 g was given intravenously preoperatively. The left upper extremity was prepped with Betadine. The wound was reopened close to the shoulder inspection revealed that there was 100 ADDH placed at that location underneath the skin flap at the shoulder. The patient received 5000 units of heparin. Peripheral vascular clamps were placed on the vein. The vein was transected in half spatulated to eat and rotated 180 degrees and then an end and spatulated anastomosis was created with 7-0 Prolene. 2 corner sutures of 7-0 Prolene were placed and then both the anterior and posterior wall were closed with a running 7-0 Prolene. At completion clamps were removed there was good pulse thrill and bruit within the fissure with a good flow noted. The wound was closed with a deep layer of interrupted 3-0 Vicryl and a superficial layer of running septic or 4-0 Monocryl. Skin prep Steri-Strips Telfa soft roll Alejandro wrap reapplied. She tolerated the procedure well was taken back to the recovery room in satisfactory condition without apparent complication. Specimens none. Drains none. Blood loss minimal Monty Brooks M.D., F.A.C.S. Type of Anesthesia:: General Anesthesiologist: Corinna Cuello
[2018-08-07 19:11] LABS: Bedside Glucose 286 mg/dL (70-110)
[2018-08-07] MEDS: Docusate Sodium 100 MG/10 ML UDC 50 MG PO (22:08)
[2018-08-07] MEDS: Atorvastatin Calcium 20 MG Tablet PO (22:10)
[2018-08-07] MEDS: metOLazone 5 MG Tablet PO (22:10)
[2018-08-07 22:20] LABS: Bedside Glucose 208 mg/dL (70-110)
[2018-08-08] VITALS: BMI 33.1
[2018-08-08] MEDS: Insulin Lispro 100 UNIT/ML INSULN.PEN SQ ×2 (00:07→06:57)
[2018-08-08 00:15] LABS: Bedside Glucose 212 mg/dL (70-110)
[2018-08-08 04:44] VITALS: BP 157/61; PULSE 71; RESP 18; TEMP 36.9; O2SAT 97
--- NOTE | 2018-08-08 05:54 | PCM.PN.SRG ---
Subjective: Pt without complaint--sore left arm - Physical Exam Extremities: - - pulse thrill bruit left upper arm, dry incisions 3+left radial pulse Vital Signs Temp Pulse Resp BP Pulse Ox 98.5 F 71 18 157/61 H 97 08/08/18 04:44 08/08/18 04:44 08/08/18 04:44 08/08/18 04:44 08/08/18 04:44 Oxygen Delivery Method Room Air Weight: 192 lb 14.472 oz Body Mass Index (BMI) 33.0 Finger Stick Blood Glucose 286 Intake and Output for Last 24 Hours 08/06/18 08/07/18 08/08/18 23:59 23:59 23:59 Intake Total 2413 / 2413 200 / 200 Output Total 300 / 300 2200 / 2200 200 / 200 Balance -300 / -300 213 / 213 0 / 0 POC Glucose 08/08/18 08/07/18 08/07/18 00:05 22:04 19:05 POC Glucose 212 H 208 H 286 H 08/07/18 08/07/18 08/07/18 15:28 08:28 05:59 POC Glucose 287 H 155 H 349 H Medical Necessity - Tobacco Use Smoking Status: Former smoker Tobacco Use: Cigarettes Assessment/Plan Fistula now is performing well Will plan office followup in 10 days.
[2018-08-08 06:19] LABS: Absolute Lymphocyte Count 1.44 X10^3/ul (0.83-4.51); Basophil# 0.01 X10^3/uL; Basophil% 0.2 % (0-1); Eosinophil# 0.09 X10^3/uL; Eosinophils% 1.5 % (0-5); Hematocrit 28.6 % (37-47); Hemoglobin 9.4 g/dl (12.0-15.0); Lymphocyte # 1.44 X10^3/ul (4.0); Lymphocyte % 23.6 % (19-41); Mean Corp Hgb Conc 32.9 g/gl (32-36); Mean Corpuscular Hgb 28.3 pg (27.0-32.0); Mean Corpuscular Volume 86.1 fL (81-99); Monocyte# 0.54 X10^3/uL; Monocyte% 8.8 % (0-10); Neutrophil # 4.02 X10^3/uL (2.7-7.7); Neutrophil % 65.7 % (47-70); Platelet Count 190 K/mm3 (150-450); RBC Distribution Width CV 13.7 % (11.6-14.6); RBC Distribution Width SD 41.7 fl (35.1-43.9); Red Blood Count 3.32 M/mm3 (4.2-5.4); White Blood Count 6.1 K/mm3 (4.4-11.0)
[2018-08-08 06:22] LABS: POSITIVE COUNT NO; POSITIVE DIFFERENTIAL NO; POSITIVE MORPHOLOGY NO
[2018-08-08 06:28] VITALS: BP 157/61; PULSE 71
[2018-08-08] MEDS: Docusate Sodium 100 MG/10 ML UDC 50 MG PO (06:28)
[2018-08-08] MEDS: hydrALAZINE 50 MG Tablet 100 MG PO (06:28)
[2018-08-08] MEDS: metOLazone 5 MG Tablet PO (06:28)
[2018-08-08 06:46] LABS: Anion Gap 6 (5-15); BUN 69 mg/dL (7-18); BUN/Creat Ratio 15.1 RATIO (10-20); Calcium,Total 8.6 mg/dL (8.5-10.1); Chloride 106 mmol/L (98-107); Creatinine, Serum 4.57 mg/dL (0.55-1.02); EST Glomerular Filtration Rate 10 mL/min (>60); Est Glom Filt Rate - Afr Amer 12 mL/min (>60); Estimated Creatinine Clearance 10.46 ml/min; Glucose 201 mg/dL (74-106); Potassium 4.1 mmol/L (3.5-5.1); Sodium Level 138 mmol/L (136-145)
[2018-08-08 07:11] LABS: Bedside Glucose 222 mg/dL (70-110)
[2018-08-08 08:59] VITALS: BP 156/57; PULSE 78; RESP 16; TEMP 36.8; O2SAT 100
[2018-08-08 09:06] VITALS: BP 156/57; PULSE 78
[2018-08-08] MEDS: Calcitriol 0.25 MCG Capsule PO (09:06)
[2018-08-08] MEDS: Famotidine 20 MG Tablet PO (09:06)
[2018-08-08] MEDS: Ezetimibe 10 MG Tablet PO (09:06)
[2018-08-08] MEDS: Furosemide 80 MG Tablet PO (09:06)
[2018-08-08] MEDS: Metoprolol(XL)Succ 200 MG Tablet PO (09:06)
[2018-08-08 09:09] VITALS: PULSE 78
--- NOTE | 2018-08-08 09:55 | DS.PCM_ITS ---
Discharge Date and Diagnosis Date of Admission: 08/06/18 Date of Discharge: 08/08/18 - Secondary Discharge Diagnosis Chronic Problems (Last Updated 07/30/18 @ 13:36 by Ange Bustillos) Chronic renal failure, stage 4 (severe) (Chronic) Hospital Course and Treatment general surgery- Dr Brooks Summary of Care Provided: Patient is a 63-year-old female with past medical history as listed was admitted on 08/06/18 through the ED for AV fistula placement and glycemic control. She is a known diabetic noncompliant with her medication and had previously been seen in the ED with severely elevated blood glucose. She refused admission then. She was admitted for glycemic control prior to AV fistula insertion. On admission yesterday, blood glucose was around 68. General surgery-Dr. Brooks was consulted for AV fistula placement. She had AV fistula placement on 08/07/2018. Subsequently, there was no left radial pulse and also no thrill could be auscultated. Patient was taken back for revision of AV fistula on the evening of 08/07/2018. BLood sugars remained fairly well controlled during admission. A1C was 9.5She remained stable and was discharged home on 08/08/2018. She is follow- up with her guest services assistant and is to see Dr. Brooks in 10 days time. She also to follow-up with her primary care doctor. Patient seen and examined prior to discharge. She had no complaints and felt well. Review of systems was otherwise negative. Labs and vitals reviewed. Home medications reviewed and reconciled. o/e: Vital Signs Height 5 ft 4 in Weight: 192 lb 14.472 oz Weight in Pounds 192.9 lbs Pulse Ox 100 Temperature 98.3 F Pulse Rate 78 Respiratory Rate 16 Blood Pressure [BP] 136/58 Blood Pressure 156/57 Blood Pressure Position [BP] Semi-Fowlers Blood Pressure Position Semi-Fowlers General: Alert, Oriented x3, Cooperative, No apparent distress HEENT: Atraumatic, PERRLA, EOMI, Normocephalic Oral: Moist Mucosa Neck: Supple, No JVD, Negative Carotid Bruits Lungs: Clear to auscultation, Normal air movement, No rhonchi, No wheeze, No rales Cardiovascular: Regular rate, Regular Rhythm, Normal S1, Normal S2, No murmurs Abdomen: Bowel Sounds Present, Soft, Non Tender, Non-Distended, No Hepato- splenomegaly Extremities: No clubbing, No cyanosis, No edema, Capillary Refill Less than 3 Seconds, No Calf Tenderness Skin: No rashes, No breakdown Musculoskeletal: No Tenderness to Palpation of Joints or Extremities; LUE in SOTERO wrap; left radial pulse is palpable. Lymphatic: No Cervical, Supraclavicular, or Inguinal Adenopathy Neurological: Cranial nerves II-XII grossly intact, Neuro grossly intact, Motor Exam 5/5 strength throughout Psych/Mental Status: Normal Affect, Appropriate, Alert and oriented to time, place, person, mood and affect Plan as discussed above. - Physical Exam Vital Signs Temp Pulse Resp BP Pulse Ox 98.3 F 78 16 156/57 H 100 08/08/18 08:59 08/08/18 09:09 08/08/18 08:59 08/08/18 09:06 08/08/18 08:59 Oxygen Delivery Method Room Air Weight: 192 lb 14.472 oz Body Mass Index (BMI) 33.0 Finger Stick Blood Glucose 286 Intake and Output for Last 24 Hours 08/06/18 08/07/18 08/08/18 23:59 23:59 23:59 Intake Total 2413 / 2413 300 / 300 Output Total 300 / 300 2200 / 2200 400 / 400 Balance -300 / -300 213 / 213 -100 / -100 Laboratory Tests Past 24 Hrs 08/08/18 08/08/18 05:30 05:30 WBC 6.1 RBC 3.32 L Hgb 9.4 L Hct 28.6 L MCV 86.1 MCH 28.3 MCHC 32.9 RDW 13.7 RDW Differential 41.7 Plt Count 190 MPV 11.0 Immature Gran % (Auto) 0.200 Neut % (Auto) 65.7 Lymph % (Auto) 23.6 [place] % (Auto) 8.8 Eos % (Auto) 1.5 Baso % (Auto) 0.2 Absolute Neuts (auto) 4.0 Absolute Lymphs (auto) 1.44 Total Counted Not Reportable Sodium 138 Potassium 4.1 Chloride 106 Carbon Dioxide 26.0 Anion Gap 6 BUN 69 H Creatinine 4.57 H Estim Creat Clear Calc 10.46 Est GFR (MDRD) Af Amer 12 L Est GFR (MDRD) Non-Af 10 L BUN/Creatinine Ratio 15.1 Glucose 201 H Calcium 8.6 POC Glucose 08/08/18 08/08/18 08/07/18 06:52 00:05 22:04 POC Glucose 222 H 212 H 208 H 08/07/18 08/07/18 19:05 15:28 POC Glucose 286 H 287 H Discharge Diet: Renal Diet Discharge Activity: May Not Drive - for 2-3 days or while taking narcotic pain medications., May Shower, May Take a Tub Bath - in 5 days. May shower in (days): 3 Keep extremity elevated above heart level: - - Keep arm elevated above the heart level for 3 days. Additional Activity Instructions:: Exercise hand vigorously with a stress ball. Call your doctor if your incision/area has: Continuous Slow Oozing, Sudden Increased Bleeding - apply pressure and call your doctor., Increased Pain/ Swelling, Increased Redness, Foul Smelling Discharge Call your doctor if you observe: Fever of 101 or Higher Suture Line Care: Avoid Pulling/Pushing, Avoid Pinching/Bending Cleanse incision/area with: Keep Dressing Clean & Dry Additional Dressing/Incision Instructions:: Change or remove dressing in two days. May protect with a gauze bandaid. Home Medications: Medications to take at Discharge atorvastatin 20 mg tablet 20 mg PO DAILY 07/30/18 calcitriol 0.25 mcg capsule 0.25 mcg PO DAILY cap 07/30/18 docusate sodium 50 mg capsule 50 mg PO TID cap 07/30/18 ezetimibe 10 mg tablet 10 mg PO DAILY 07/30/18 ferrous sulfate 325 mg (65 mg iron) tablet 325 mg PO BID tab 07/30/18 furosemide 80 mg tablet 80 mg PO DAILY 07/30/18 hydralazine 100 mg tablet 100 mg PO TID tab 07/30/18 insulin glargine (U- 100) 100 unit/mL subcutaneous solution 25 unit SC QHS ml 07/30/18 insulin lispro (U- 100) 100 unit/mL subcutaneous solution See Protocol SC TIDCM 07/30/18 metolazone 5 mg tablet 5 mg PO TID tab 07/30/18 metoprolol succinate ER 100 mg capsule sprinkle, ext. release 24 hr 200 mg PO DAILY ea 07/30/18 ranitidine 150 mg tablet 150 mg PO DAILY 07/30/18 Ondansetron HCl 4 mg PO Q4H PRN PRN 08/02/18 Cholecalciferol (VIT D3) [Vitamin D3] 1,000 unit PO DAILY 08/06/18 Hydrocodone Bitart/Apap 5-325 [[place] 5MG-325MG] 1 tablet PO Q6H PRN PRN 2 Days #6 tablet 08/07/18 Following Prescrptions Were Given to Patient: Hydrocodone Bitart/Apap 5-325 [[place] 5MG-325MG] 1 tablet PO Q6H PRN PRN 2 Days #6 tablet PRN Reason: Pain Primary Care Physician: Hortencia Zacarias NP-C [Primary Care Provider] - Please follow up with your Primary Care Physician in: one week Please Follow Up With: Monty Brooks MD - [phone] When: Call to make an appointment for suture removal and follow up in 10 days Patient Instructions: ED Hyperglycemia Diabetic Disposition: Home Minutes spent on discharge:: 35 Patient Condition:: Stable Medical Necessity - Tobacco Use Smoking Status: Former smoker Tobacco Use: Cigarettes Meaningful Use Info Meaningful Use Diagnoses (Choose all that apply): None applicable Code Visit Inpatient E&M: 47725 Disch Hosp
--- NOTE | 2018-08-08 11:03 | CASEMGMT ---
CLAIRE form reviewed with patient at this time. Patient voiced understanding and signed form. RN KERLINE provided copy of CLAIRE for to patient. Original form filed in chart.
== END 2018-08-08 11:43 | disposition home or self-care (01) ==
LOC: ED 19:16 → MS3 21:03
PROVIDERS: Anesthesiology; Surgery; Admitting Provider Family Medicine; Emergency Provider Emergency Medicine; Family Provider Nurse Practitioner Family; PCP Nurse Practitioner Family; Visit Provider Student in an Organized Health Care Education/Training Program
PROC: (CPT 36818; principal; 2018-08-07 10:45)
DX: Z49.01 Encounter for fitting and adjustment of extracorporeal dialysis catheter (principal); E11.22 Type 2 diabetes mellitus with diabetic chronic kidney disease; N18.5 Chronic kidney disease, stage 5; I13.0 Hypertensive heart and chronic kidney disease with heart failure and stage 1 through stage 4 chronic kidney disease, or unspecified chronic kidney disease; T82.590A Other mechanical complication of surgically created arteriovenous fistula, initial encounter; Y82.8 Other medical devices associated with adverse incidents; Y92.239 Unspecified place in hospital as the place of occurrence of the external cause; Y83.2 Surgical operation with anastomosis, bypass or graft as the cause of abnormal reaction of the patient, or of later complication, without mention of misadventure at the time of the procedure; I50.9 Heart failure, unspecified; E11.65 Type 2 diabetes mellitus with hyperglycemia; D64.9 Anemia, unspecified; E87.6 Hypokalemia; E11.40 Type 2 diabetes mellitus with diabetic neuropathy, unspecified; E66.9 Obesity, unspecified; Z68.33 Body mass index [BMI] 33.0-33.9, adult; Z71.3 Dietary counseling and surveillance; Z79.899 Other long term (current) drug therapy; Z79.4 Long term (current) use of insulin; Z87.891 Personal history of nicotine dependence; Z91.14 Patient's other noncompliance with medication regimen; G47.30 Sleep apnea, unspecified; F32.9 Major depressive disorder, single episode, unspecified; I27.20 Pulmonary hypertension, unspecified
CPT/HCPCS: 01780 ×2; 36818; 36832; 36415; 80048; 82962; 83036; 85025; 85027; 93005; 96360; 96361; 97802; 99218; 99285; J7030; A4216; G0378

== ENCOUNTER 2018-09-06 08:32 | Day surgery (SDC) | payer MEDICARE, MEDICAID, SELFPAY ==
[2018-09-04 13:03] VITALS: BMI 33.0
--- NOTE | 2018-09-06 05:41 | PCM.HP.BLA ---
Problem List (1) Problem with vascular access Status: Acute History and Physical Date of Admission: 09/06/18 MR#:[id number]:[id number] Name: EDGAR CASTRO Rep #: [id number] : 1950 Provider: Monty Brooks MD Age/Sex: 68/F Location: [facility] Status: Signed Intake Vital Signs 09/04/18 Body Mass Index (BMI) 33.0 09/04/18 Blood Pressure 172/52 H 09/04/18 Blood Pressure Location Rt brachial 09/04/18 Blood Pressure Position Sitting 09/04/18 Respiratory Rate 20 H 09/04/18 Pulse Rate 66 09/04/18 Pulse Ox 100 Intake Visit Reasons: FISTULA REVISION 08/07/18 Chief Complaint: Uncontrolled blood sugars Allergies No Known Allergies Allergy (Verified 09/04/18 12:57) Medications atorvastatin 20 mg tablet 20 mg PO DAILY 07/30/18 [History Confirmed 09/04/18] calcitriol 0.25 mcg capsule 0.25 mcg PO DAILY cap 07/30/18 [History Confirmed 09/04/18] docusate sodium 50 mg capsule 50 mg PO TID cap 07/30/18 [History Confirmed 09/04/18] ezetimibe 10 mg tablet 10 mg PO DAILY 07/30/18 [History Confirmed 09/04/18] ferrous sulfate 325 mg (65 mg iron) tablet 325 mg PO BID tab 07/30/18 [History Confirmed 09/04/18] furosemide 80 mg tablet 80 mg PO DAILY 07/30/18 [History Confirmed 09/04/18] hydralazine 100 mg tablet 100 mg PO TID tab 07/30/18 [History Confirmed 09/04/18] insulin glargine (U- 100) 100 unit/mL subcutaneous solution 25 unit SC QHS ml 07/30/18 [History Confirmed 09/04/18] insulin lispro (U- 100) 100 unit/mL subcutaneous solution See Protocol SC TIDCM 07/30/18 [History Confirmed 09/04/18] metolazone 5 mg tablet 5 mg PO TID tab 07/30/18 [History Confirmed 09/04/18] metoprolol succinate ER 100 mg capsule sprinkle, ext. release 24 hr 200 mg PO DAILY ea 07/30/18 [History Confirmed 09/04/18] ranitidine 150 mg tablet 150 mg PO DAILY 07/30/18 [History Confirmed 09/04/18] Ondansetron HCl 4 mg PO Q4H PRN PRN 08/02/18 [History Confirmed 09/04/18] Cholecalciferol (VIT D3) [Vitamin D3] 1,000 unit PO DAILY 08/06/18 [History Confirmed 09/04/18] PFS Medical History Chronic renal failure, stage 4 (severe) (Chronic) Anemia (Acute) CHF (congestive heart failure) (Acute) Depression (Acute) Diabetes (Acute) Diabetic neuropathy (Acute) GERD (gastroesophageal reflux disease) (Acute) Obesity (Acute) Chronic kidney disease (Chronic) Hypertension (Chronic) Surgical History History of (Acute) History of appendectomy (Acute) History of laparoscopic cholecystectomy (Acute) history colon repair (Acute) Family History Father Diabetes Heart disease Mother Heart disease Sister Diabetes Brother Diabetes Social History Smoking Status: Former smoker alcohol intake: never substance use type: does not use HPI HPI HPI: EDGAR CASTRO, is a 68 F who presents to the office today for HPI HPI Surgical H&P: Yes HPI: EDGAR CASTRO, is a 68 F who presents to the office today for surgical follow-up status post transposition left upper arm cephalic vein to brachial artery AV fistula which I created for her on August 07, 2018. I did have some difficulties intraoperatively with the superior portion of the fistula twisting requiring a anastomotic revision of vein to vein at that spot. The patient has no complaints. Exam Const General: cooperative, comfortable, no acute distress Nutritional Appearance: overweight Orientation: alert, awake, oriented x3 HENMT Head: normal to inspection Chest Chest palpation & inspection: normal inspection of the chest Resp Effort & Inspection: normal respiratory effort Auscultation: clear to auscultation bilaterally Cardio Rate: regular rate Rhythm: regular rhythm GI Palpation: soft Extrem Other: Nicely healing transposition excision of left upper extremity cephalic vein harvest. The transposed site appears to be maturing well with a easily visible vein but it appears to be pulsatile. The arterial anastomosis is widely patent on ultrasound. Inspection reveals that proximal to where the fistula was harvested it appears in the proximal shoulder area to be diminutive On auscultation it has more of a obstructive venous sound Psych Affect: normal affect Assessment & Plan Problems 1. Problem with vascular access Z78.9 Plan This fistula appears to have a problem in the proximal venous outflow proximal shoulder. This would be close to the cephalic arch. I recommend a left upper extremity fistulogram with carbon dioxide as she is not yet on hemodialysis. I anticipate the requirement for endovascular intervention. I would anticipate accessing closer to the antecubital space antegrade with flow. She is aware of the technique, benefit, risk and alternatives. We will schedule and proceed at her discretion. Monty Brooks M.D., F.A.C.S. Coding Level of Care Code Global Post Op Diagnoses Problem with vascular access Z78.9 09/04/18 1303 <Electronically signed by Monty Brooks MD> Date Monty Brooks MD Cosigner Signature: Date (if applicable) CC: ~ I have re-examined the patient. There are no clinical changes since date of exam
[2018-09-06 08:59] VITALS: BMI 34.3
--- NOTE | 2018-09-06 10:57 | OP.PCM_ITS ---
Problem List (1) Problem with vascular access Status: Acute Report of Operation Date of Procedure: 09/06/18 Pre-Operative Diagnosis: Failure to mature transposed left upper extremity cephalic vein to brachial artery arteriovenous hemodialysis fistula Post-Operative Diagnosis: Venous anastomotic stricturing Surgery/Procedure Performed:: Carbon dioxide left upper extremity fistulogram with 5 x 20 mm Powerflex angioplasty Description of Surgical Findings:: Timeout and informed consent was obtained. 68-year-old female taken to the special procedure lab placed on the table. She drove herself so no IV sedative was given. The left upper extremity sterilely prepped and draped. Ultrasound was used to identify the cephalic vein closer to the arterial anastomosis in the distal upper arm. 2% lidocaine was instilled under ultrasound guidance. Micropuncture needle inserted micro puncture wire inserted a 6 [place] short sheath was inserted there was extraordinarily high arterial backflow. The patient was relatively hypertensive and she was given hydralazine 10 mg IV. A carbon dioxide 50 g obtained demonstrating generally normal and patent vein however the patient had had 180 degrees twist requiring that a end and venous to venous anastomosis to be performed in the proximal left upper arm. At that site there appeared to be relative narrowing of the significant degree. There was otherwise good central venous outflow. I subsequently was able to get an 035 angled Glidewire past the area. Took a 5 x 20 m Powerflex balloon and with ease was able to dilate the area. Completion view demonstrated improvement. As this is a relatively fresh fistula I did not pursue more aggressive treatment. The patient appeared to have an adequate pulse and thrill and bruit at the completion there were no apparent complication and blood loss was minimal. Fistulogram demonstrates a nicely transposed left upper arm cephalic vein to brachial artery AV fistula. There was extraordinarily high inflow I did not attempt to reflux the carbon dioxide into the arterial system. There is good central venous outflow. There was clinically significant stenosis at the venous to venous anastomosis in the proximal left upper arm. That was improved with the 5 x 20 m Powerflex angioplasty. Monty Brooks M.D., F.A.C.S.
== END 2018-09-06 11:40 | disposition home or self-care (01) ==
LOC: CLSP 08:33
PROVIDERS: Family Provider Nurse Practitioner Family; PCP Nurse Practitioner Family; Referring Provider Surgery; Visit Provider Surgery
DX: T82.858A Stenosis of other vascular prosthetic devices, implants and grafts, initial encounter (principal); I13.0 Hypertensive heart and chronic kidney disease with heart failure and stage 1 through stage 4 chronic kidney disease, or unspecified chronic kidney disease; E11.22 Type 2 diabetes mellitus with diabetic chronic kidney disease; N18.4 Chronic kidney disease, stage 4 (severe); D63.1 Anemia in chronic kidney disease; I50.9 Heart failure, unspecified; K21.9 Gastro-esophageal reflux disease without esophagitis; E66.9 Obesity, unspecified; Z68.33 Body mass index [BMI] 33.0-33.9, adult; Z99.2 Dependence on renal dialysis; Z79.4 Long term (current) use of insulin; Z79.899 Other long term (current) drug therapy; Z87.891 Personal history of nicotine dependence
CPT/HCPCS: 36902; 76937; Q9967; C1725; C1769

== ENCOUNTER 2018-11-12 09:08 | Day surgery (SDC) | payer MEDICARE, MEDICAID, SELFPAY ==
--- NOTE | 2018-10-04 03:28 | HP_ITS ---
Intake Vital Signs 10/04/18 Body Mass Index (BMI) 34.3 Intake Visit Reasons: 3 wk FU fistulogram Chief Complaint: post fistulogram Allergies No Known Allergies Allergy (Verified 10/04/18 15:21) Medications atorvastatin 20 mg tablet 20 mg PO DAILY 07/30/18 [History Confirmed 10/04/18] calcitriol 0.25 mcg capsule 0.25 mcg PO DAILY cap 07/30/18 [History Confirmed 10/04/18] docusate sodium 50 mg capsule 50 mg PO TID cap 07/30/18 [History Confirmed 10/04/18] ezetimibe 10 mg tablet 10 mg PO DAILY 07/30/18 [History Confirmed 10/04/18] ferrous sulfate 325 mg (65 mg iron) tablet 325 mg PO BID tab 07/30/18 [History Confirmed 10/04/18] furosemide 80 mg tablet 80 mg PO DAILY 07/30/18 [History Confirmed 10/04/18] hydralazine 100 mg tablet 100 mg PO TID tab 07/30/18 [History Confirmed 10/04/18] insulin glargine (U- 100) 100 unit/mL subcutaneous solution 25 unit SC QHS ml 07/30/18 [History Confirmed 10/04/18] insulin lispro (U- 100) 100 unit/mL subcutaneous solution See Protocol SC TIDCM 07/30/18 [History Confirmed 10/04/18] metolazone 5 mg tablet 5 mg PO TID tab 07/30/18 [History Confirmed 10/04/18] metoprolol succinate ER 100 mg capsule sprinkle, ext. release 24 hr 200 mg PO DAILY ea 07/30/18 [History Confirmed 10/04/18] ranitidine 150 mg tablet 150 mg PO DAILY 07/30/18 [History Confirmed 10/04/18] Ondansetron HCl 4 mg PO Q4H PRN PRN 08/02/18 [History Confirmed 10/04/18] Cholecalciferol (VIT D3) [Vitamin D3] 1,000 unit PO DAILY 08/06/18 [History Confirmed 10/04/18] [facility] Medical History Problem with vascular access (Acute) Chronic renal failure, stage 4 (severe) (Chronic) Anemia (Acute) CHF (congestive heart failure) (Acute) Depression (Acute) Diabetes (Acute) Diabetic neuropathy (Acute) GERD (gastroesophageal reflux disease) (Acute) Obesity (Acute) Chronic kidney disease (Chronic) Hypertension (Chronic) Surgical History History of (Acute) History of appendectomy (Acute) History of laparoscopic cholecystectomy (Acute) history LUE fistulogram (Acute ~09/06/18) history colon repair (Acute) Family History Father Diabetes Heart disease Mother Heart disease Sister Diabetes Brother Diabetes Social History Smoking Status: Former smoker alcohol intake: never substance use type: does not use HPI HPI HPI: EDGAR CASTRO, is a 68 F who presents to the office today for HPI HPI Surgical H&P: Yes HPI: EDGAR CASTRO, is a 68 F who presents to the office today for surgical care regarding a left upper extremity AV fistula. On August 07, 2018 I created this fistula for her. There was torsion of the proximal component requiring a disconnection and end and anastomosis. On September 06, 2018 and performed a carbon dioxide fistulogram which seemingly nicely treated that vein to vein anastomotic stricturing. I performed that with a 5 x 20 mm Powerflex balloon. She returns today with no particular complaints. She is not yet on hemodialysis. Exam Const General: cooperative Nutritional Appearance: average body habitus Orientation: alert, awake HENLA Head: normal to inspection Resp Effort & Inspection: normal respiratory effort Auscultation: clear to auscultation bilaterally Cardio Rate: regular rate Rhythm: regular rhythm GI Palpation: soft, no hepatosplenomegaly Extrem Other: Left upper extremity transposed basilic vein to brachial artery AV fistula. It is extraordinarily pulsatile. There is a faint thrill and a bruit. Bruit is high-pitched in the proximal left upper arm shoulder area more proximal than the surgical incision. I performed ultrasound inspection suggesting that the suture material in previous area of suspected anastomotic stricturing seems to still be resolved however more proximal to that there is a distinct area of venous stenosis. Assessment & Plan Plan Again I have recommended the patient a left upper extremity fistulogram antegrade with flow performed with carbon dioxide. Clinically there is an obstructive flow pattern but quite unusually this appears to be proximal to the harvest incision and proximal to the previous venovenous anastomosis. Careful inspection will be pursued. Potential angioplasty or possibly even drug-coated balloon treatment. I anticipate antegrade access closer to the antecubital space. She has had an opportunity to ask and have questions answered. This does not appear to be urgent we will schedule and proceed as noted. Monty Brooks M.D., F.A.C.S. Coding Level of Care Code Off vis,est,level 2 Comment Problem with dialysis access 10/04/18 1528 <Electronically signed by Monty mendoza MD> Date _ Monty Brooks MD I have re-examined the patient. There are no clinical changes since date of exam.
[2018-11-05 14:50] LABS: Hematocrit 27.3 % (37-47); Hemoglobin 9.4 g/dl (12.0-15.0); Mean Corp Hgb Conc 34.4 g/gl (32-36); Mean Corpuscular Hgb 29.2 pg (27.0-32.0); Mean Corpuscular Volume 84.8 fL (81-99); Mean Platelet Vol. 9.8 fl (6.2-12.0); Platelet Count 196 K/mm3 (150-450); RBC Distribution Width CV 14.1 % (11.6-14.6); RBC Distribution Width SD 44.2 fl (35.1-43.9); Red Blood Count 3.22 M/mm3 (4.2-5.4); White Blood Count 5.6 K/mm3 (4.4-11.0)
[2018-11-05 14:57] LABS: Scan Indicated on CBC? Y/N NO
[2018-11-05 15:12] LABS: Anion Gap 12 (5-15); BUN 95 mg/dL (7-18); BUN/Creat Ratio 23.9 RATIO (10-20); Chloride 110 mmol/L (98-107); Creatinine, Serum 3.98 mg/dL (0.55-1.02); EST Glomerular Filtration Rate 12 mL/min (>60); Est Glom Filt Rate - Afr Amer 15 mL/min (>60); Glucose 245 mg/dL (74-106); Potassium 4.4 mmol/L (3.5-5.1); Sodium Level 142 mmol/L (136-145)
--- NOTE | 2018-11-12 10:17 | PCM.HP.STD ---
Problem List (1) Problem with vascular access Status: Acute (2) Chronic renal failure, stage 4 (severe) Status: Chronic History of Present Illness Date of Admission: 11/12/18 Chief Complaint: Problem with dialysis access The patient is a 68 year old F who presents for an update history and physical for a left upper extremity fistulogram. Patient denies recent hospitalizations or illnesses. Patient's previous history per Dr. Brooks: EDGAR CASTRO, is a 68 F who presents to the office today for surgical care regarding a left upper extremity AV fistula. On August 07, 2018 I created this fistula for her. There was torsion of the proximal component requiring a disconnection and end and anastomosis. On September 06, 2018 and performed a carbon dioxide fistulogram which seemingly nicely treated that vein to vein anastomotic stricturing. I performed that with a 5 x 20 mm Powerflex balloon. She returns today with no particular complaints. She is not yet on hemodialysis. Past Medical History Past Medical History (Chronic Problems): Chronic Problems (Last Reviewed 11/12/18 @ 10:27 by Parisa Escalona PA-C) Chronic renal failure, stage 4 (severe) (Chronic) Medical History: Medical History (Last Reviewed 11/12/18 @ 10:27 by Parisa Escalona PA-C) Problem with vascular access (Acute) Z78.9 Chronic renal failure, stage 4 (severe) (Chronic) N18.4 Anemia D64.9 CHF (congestive heart failure) I50.9 Depression F32.9 Diabetes E11.9 Diabetic neuropathy E11.40 GERD (gastroesophageal reflux disease) K21.9 Obesity E66.9 Chronic kidney disease N18.9 Hypertension I10 Allergies No Known Allergies Allergy (Verified 10/04/18 15:21) Home Medications: Ambulatory Orders Medication Instructions Recorded atorvastatin 20 mg tablet 20 mg PO DAILY 07/30/18 calcitriol 0.25 mcg capsule 0.25 mcg PO DAILY cap 07/30/18 docusate sodium 50 mg capsule 50 mg PO TID cap 07/30/18 ezetimibe 10 mg tablet 10 mg PO DAILY 07/30/18 ferrous sulfate 325 mg (65 mg 325 mg PO BID tab 07/30/18 iron) tablet furosemide 80 mg tablet 80 mg PO DAILY 07/30/18 hydralazine 100 mg tablet 100 mg PO TID tab 07/30/18 insulin glargine (U-100) 100 25 unit SC QHS ml 07/30/18 unit/mL subcutaneous solution insulin lispro (U-100) 100 unit/mL See Protocol SC TIDCM 07/30/18 subcutaneous solution metolazone 5 mg tablet 5 mg PO TID tab 07/30/18 metoprolol succinate ER 100 mg 200 mg PO DAILY ea 07/30/18 capsule sprinkle, ext. release 24 hr ranitidine 150 mg tablet 150 mg PO DAILY 07/30/18 Ondansetron HCl 4 mg PO Q4H PRN PRN 08/02/18 Cholecalciferol (VIT D3) [Vitamin 1,000 unit PO DAILY 08/06/18 D3] Surgical History: Surgical History (Last Reviewed 11/12/18 @ 10:28 by Parisa Escalona PA-C) History of Z98.891 History of appendectomy Z90.49 History of laparoscopic cholecystectomy Z90.49 history LUE fistulogram Onset Date: ~09/06/18 history colon repair Smoking Status: Former smoker Tobacco Use: Non-smoker - *Family History Maternal Family History: Family History (Last Reviewed 11/12/18 @ 10:28 by Parisa Escalona PA-C) Father Diabetes Heart disease Mother Heart disease Sister Diabetes Brother Diabetes History Items: No pertinent history Review of Systems Constitutional: Denies: Chills, Fever, Weight Change HEENT: Denies: Head Aches, Sinus Congestion, Sinus Drainage Cardiovascular: Reports: - - Heart murmur, high blood pressure. Denies: Chest Pain, Palpitations Respiratory: Reports: - - Sleep apnea. Denies: Cough, Shortness of breath at rest, Sputum production Gastrointestinal: Denies: Abdominal Pain, Nausea, Vomiting Genitourinary: Denies: Dysuria Musculoskeletal: Denies: Joint Pain, Joint Tenderness Skin: Denies: Rash, Wounds Neurological: Denies: Numbness, Tingling, Focal weakness Psychiatric: Denies: Anxiety, Depression, Homicidal Ideations, Suicidal Ideations Hematologic/ Lymphatic: Reports: Anemia VTE Information - Inpt Only VTE Present on Admission: No - Physical Exam General: Alert, Oriented x3, Cooperative HEENT: Atraumatic, PERRLA, EOMI, Normocephalic Neck: Supple, No JVD, Negative Carotid Bruits Lungs: Clear to auscultation, Normal air movement Cardiovascular: Regular rate, No murmurs Abdomen: Bowel Sounds Present, Soft, Non Tender Extremities: No edema, Capillary Refill Less than 3 Seconds, - - Left upper extremity- excellent pulse, diminished bruit and thrill. High-pitched sound noted proximal to the surgical incision. Skin: No rashes, No breakdown Musculoskeletal: No Tenderness to Palpation of Joints or Extremities Neurological: Cranial nerves II-XII grossly intact Psych/Mental Status: Normal Affect, Appropriate Weight: 199 lb Body Mass Index (BMI) 34.3 Finger Stick Blood Glucose 286 Assessment/Plan All Active Problems (Last Reviewed 11/12/18 @ 10:27 by Parisa Escalona PA-C) Problem with vascular access (Acute) Impression: Problem with dialysis access Plan: Dr. Brooks will plan to perform a left upper extremity fistulogram with carbon dioxide accessing antegrade with possible intervention. Patient has had the opportunity to ask and have questions answered. Patient verbally understands and agrees with the plan. Code Visit Inpatient E&M: 87186 Subs Hosp L1 - No charge update H&P
--- NOTE | 2018-11-12 12:49 | OP.PCM_ITS ---
Problem List (1) Problem with vascular access Status: Acute Report of Operation Date of Procedure: 11/12/18 Pre-Operative Diagnosis: Problem with vascular access venous outflow stenosis Post-Operative Diagnosis: Venous outflow stenosis Surgery/Procedure Performed:: Carbon dioxide fistulogram left upper extremity transposed cephalic vein to brachial artery AV fistula with 6 x 80 mm ever cross angioplasty and 6 x 20 mm conquest angioplasty and 6 x 5 cm Viabahn Description of Surgical Findings:: Timeout and informed consent was obtained. 68-year-old female taken to the special procedures I placed on the table left upper extremity sterilely prepped draped ultrasound was used to identify the cephalic vein close to the antecubital space 2% lidocaine was instilled micropunch needle inserted antegrade with flow micropuncture wire a 6 [place] short sheath was inserted using carbon dioxide fistula Gram stain of the left upper arm and chest area. 15 cc/inj. 2 injections. This demonstrated in the proximal upper arm a area of proximal me 3 similar long high-grade venous stenosis. I initially placed a 6 x 80 mm ever cross balloon as there was more diffuse narrowing and I performed b alloon angioplasty up to 14 bin of pressure with increased complete release. I then placed a 6 x 20 m conquest balloon and at approximately 12 bin of pressure there was sudden release. Carbon dioxide 50 g down demonstrated a leak at that area. So I exchanged out for a 7 [place] sheath. I then selected a 6 x 5 cm Viabahn stent graft. In between change overs I placed a 6 x 20 m conquest balloon up to 8 bin pressure to stall any bleeding until equipment was ready. I then inserted the L5 upon deployed at the C2 that in place with a 6 x 20 m [employer]., Dioxide fish Yariel now demonstrated wide-open patency and no evidence of ongoing leak. The patient incredibly tolerated that very well. I might check marked on her left upper arm the side of the stent graft. I also shot a retrograde view demonstrating widely patent arterial anastomosis. Sheath wires dilators were removed. The access site was closed with U suture of 4-0 nylon. The patient does have a pulse and thrill. Blood loss approximately 20 cc. She tolerated procedure incredibly well and was taken to the recovery room in satisfactory condition. Histogram demonstrates a transposed left arm cephalic vein to brachial artery AV fistula with an area of diffuse narrowing of the left upper arm cephalic vein and its outflow position over about a 6 cm area. This was improved after ever cross angioplasty but after the conquest angioplasty with is now an obvious leak. Subsequent to the placement of the stent graft there is resolution of that leak with good central venous outflow. 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 Type of Anesthesia:: Local
--- NOTE | 2018-11-15 02:10 | HP.PCM_ITS ---
Problem List (1) Problem with vascular access Status: Acute History and Physical Date of Admission: 11/12/18 Problem List (1) Problem with vascular access Status: Acute (2) Chronic renal failure, stage 4 (severe) Status: Chronic History of Present Illness Date of Admission: 11/12/18 Chief Complaint: Problem with dialysis access The patient is a 68 year old F who presents for an update history and physical for a left upper extremity fistulogram. Patient denies recent hospitalizations or illnesses. Patient's previous history per Dr. Brooks: EDGAR CASTRO, is a 68 F who presents to the office today for surgical care regarding a left upper extremity AV fistula. On August 07, 2018 I created this fistula for her. There was torsion of the proximal component requiring a disconnection and end and anastomosis. On September 06, 2018 and performed a carbon dioxide fistulogram which seemingly nicely treated that vein to vein anastomotic stricturing. I performed that with a 5 x 20 mm Powerflex balloon. She returns today with no particular complaints. She is not yet on hemodialysis. Past Medical History Past Medical History (Chronic Problems): Chronic Problems (Last Reviewed 11/12/18 @ 10:27 by Parisa Escalona PA-C) Chronic renal failure, stage 4 (severe) (Chronic) Medical History: Medical History (Last Reviewed 11/12/18 @ 10:27 by Parisa Escalona PA-C) Problem with vascular access (Acute) Z78.9 Chronic renal failure, stage 4 (severe) (Chronic) N18.4 Anemia D64.9 CHF (congestive heart failure) I50.9 Depression F32.9 Diabetes E11.9 Diabetic neuropathy E11.40 GERD (gastroesophageal reflux disease) K21.9 Obesity E66.9 Chronic kidney disease N18.9 Hypertension I10 Allergies No Known Allergies Allergy (Verified 10/04/18 15:21) Home Medications: Ambulatory Orders Medication Instructions Recorded atorvastatin 20 mg tablet 20 mg PO DAILY 07/30/18 calcitriol 0.25 mcg capsule 0.25 mcg PO DAILY cap 07/30/18 docusate sodium 50 mg capsule 50 mg PO TID cap 07/30/18 ezetimibe 10 mg tablet 10 mg PO DAILY 07/30/18 ferrous sulfate 325 mg (65 mg 325 mg PO BID tab 07/30/18 iron) tablet furosemide 80 mg tablet 80 mg PO DAILY 07/30/18 hydralazine 100 mg tablet 100 mg PO TID tab 07/30/18 insulin glargine (U-100) 100 25 unit SC QHS ml 07/30/18 unit/mL subcutaneous solution insulin lispro (U-100) 100 unit/mL See Protocol SC TIDCM 07/30/18 subcutaneous solution metolazone 5 mg tablet 5 mg PO TID tab 07/30/18 metoprolol succinate ER 100 mg 200 mg PO DAILY ea 07/30/18 capsule sprinkle, ext. release 24 hr ranitidine 150 mg tablet 150 mg PO DAILY 07/30/18 Ondansetron HCl 4 mg PO Q4H PRN PRN 08/02/18 Cholecalciferol (VIT D3) [Vitamin 1,000 unit PO DAILY 08/06/18 D3] Surgical History: Surgical History (Last Reviewed 11/12/18 @ 10:28 by Parisa Escalona PA-C) History of Z98.891 History of appendectomy Z90.49 History of laparoscopic cholecystectomy Z90.49 history LUE fistulogram Onset Date: ~09/06/18 history colon repair Smoking Status: Former smoker Tobacco Use: Non-smoker - *Family History Maternal Family History: Family History (Last Reviewed 11/12/18 @ 10:28 by Parisa Escalona PA-C) Father Diabetes Heart disease Mother Heart disease Sister Diabetes Brother Diabetes History Items: No pertinent history Review of Systems Constitutional: Denies: Chills, Fever, Weight Change HEENT: Denies: Head Aches, Sinus Congestion, Sinus Drainage Cardiovascular: Reports: - - Heart murmur, high blood pressure. Denies: Chest Pain, Palpitations Respiratory: Reports: - - Sleep apnea. Denies: Cough, Shortness of breath at rest, Sputum production Gastrointestinal: Denies: Abdominal Pain, Nausea, Vomiting Genitourinary: Denies: Dysuria Musculoskeletal: Denies: Joint Pain, Joint Tenderness Skin: Denies: Rash, Wounds Neurological: Denies: Numbness, Tingling, Focal weakness Psychiatric: Denies: Anxiety, Depression, Homicidal Ideations, Suicidal Ideations Hematologic/ Lymphatic: Reports: Anemia VTE Information - Inpt Only VTE Present on Admission: No - Physical Exam General: Alert, Oriented x3, Cooperative HEENT: Atraumatic, PERRLA, EOMI, Normocephalic Neck: Supple, No JVD, Negative Carotid Bruits Lungs: Clear to auscultation, Normal air movement Cardiovascular: Regular rate, No murmurs Abdomen: Bowel Sounds Present, Soft, Non Tender Extremities: No edema, Capillary Refill Less than 3 Seconds, - - Left upper extremity- excellent pulse, diminished bruit and thrill. High-pitched sound noted proximal to the surgical incision. Skin: No rashes, No breakdown Musculoskeletal: No Tenderness to Palpation of Joints or Extremities Neurological: Cranial nerves II-XII grossly intact Psych/Mental Status: Normal Affect, Appropriate Weight: 199 lb Body Mass Index (BMI) 34.3 Finger Stick Blood Glucose 286 Assessment/Plan All Active Problems (Last Reviewed 11/12/18 @ 10:27 by Parisa Escalona PA-C) Problem with vascular access (Acute) Impression: Problem with dialysis access Plan: Dr. Brooks will plan to perform a left upper extremity fistulogram with carbon dioxide accessing antegrade with possible intervention. Patient has had the opportunity to ask and have questions answered. Patient verbally understands and agrees with the plan. Code Visit Inpatient E&M: 80438 Subs Hosp L1 - No charge update H&P 11/12/18 1035<Electronically signed by Parisa sEcalona PA-C> Date Parisa Escalona PA-C Cosigner Signature:Date (if applicable) CC: ELECTRICAL ENGINEERING PROFESSOR-Rodrigo Zacarias; Parisa Escalona PA-C ~ Signed I have re-examined the patient. There are no clinical changes since date of exam.
== END 2018-11-12 14:00 | disposition home or self-care (01) ==
PROVIDERS: Family Provider Nurse Practitioner Family; PCP Nurse Practitioner Family; Referring Provider Surgery; Visit Provider Surgery
DX: T82.898A Other specified complication of vascular prosthetic devices, implants and grafts, initial encounter (principal); I13.0 Hypertensive heart and chronic kidney disease with heart failure and stage 1 through stage 4 chronic kidney disease, or unspecified chronic kidney disease; I50.9 Heart failure, unspecified; N18.4 Chronic kidney disease, stage 4 (severe); F32.9 Major depressive disorder, single episode, unspecified; K21.9 Gastro-esophageal reflux disease without esophagitis; E66.9 Obesity, unspecified; E11.40 Type 2 diabetes mellitus with diabetic neuropathy, unspecified; E11.22 Type 2 diabetes mellitus with diabetic chronic kidney disease; Z68.34 Body mass index [BMI] 34.0-34.9, adult; Z79.4 Long term (current) use of insulin; Z79.899 Other long term (current) drug therapy; Z87.891 Personal history of nicotine dependence; Z78.9 Other specified health status
CPT/HCPCS: 36415; 36903; 76937; 80048; 85027; Q9967; C1725; C1769; C1874; C1894